=== PATIENT | male | born 1995 | race African-American/Black ===

== ENCOUNTER 2024-06-08 16:35 | Inpatient (IN) ==
--- NOTE | 2024-06-08 17:37 | Emergency Department Note ---
Impression & Plan Seizure, Acute neck pain, Acute back pain ED Provider Note NAME: YOLETTE [id number] EMMANUEL AGE: 29 SEX: Male INFORMANT: Patient, staff ED PROVIDER(S): Harley Singh MD CHIEF COMPLAINT: Seizure PLAN: Disposition: Admitted Outpatient prescription management: none Referral: None MEDICAL DECISION MAKING: Patient presented because of seizure issues. He was awake and answering questions. He was placed in a cervical collar. Patient had an elevated hemoglobin but no leukocytosis on CBC. Chemistry panel was unremarkable except for borderline magnesium. Patient underwent CT imaging of the head, cervical spine, thoracic spine and lumbar spine given his complaints of pain in this region. Patient was given Tylenol and hydrated. Patient had unremarkable findings in the spine imaging. His cervical collar was cleared. Patient's head CT showed possible hypodensity in the rodriguez radiata per radiology and repeat imaging was recommended. I did consult with neurology, Dr. Short at [facility] and discussed the case. Reviewed the diagnostics and presentation. She did recommend loading the patient with 2.5 g of Keppra and increasing his daily dose to 1000 mg twice daily. She felt repeat imaging in 12 hours was reasonable. MRI or CT scan depending upon what the patient can go through was recommended. 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 Patient notes not having an MRI ever before. The IV Keppra was ordered. The patient initially was placed on nasal cannula oxygen due to some borderline low sats. He had an unremarkable chest x-ray. Patient was taken off the oxygen and did well for short period time but then had borderline low sats again. There is no reports of aspiration bilious this is a possibility. Patient will need to be closely monitored. In light of the need for observation and repeat imaging further management in the hospital was deemed appropriate. Consultation was made with Dr. Damion Manning, [facility] hospitalist service. Case discussed and diagnostics were reviewed. Did review the neurology consult and recommendations. Patient was evaluated in the ER admitted for further management. Care/management discussed with: On-call neurology, hospitalist, group program manager Level of care consideration(s): After review of the information above and other included data, I feel the patient requires escalation of care to admission. Triage Nursing notes: reviewed and agree them. 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 Diagnostics, independently interpreted by me: ECG: Twelve-lead ECG reveals a sinus rhythm with first-degree AV block and right bundle branch block with inferolateral T wave inversions. When compared to 11 February 2024 morphology is similar. Cardiac Monitoring: Cardiac monitoring ordered by me: The patient was placed on continuous cardiac monitoring and observed. It revealed a normal sinus rhythm at 61 beats per minute without ectopy or evidence of dysrhythmia. Medical decision rules: none Imaging studies: Head CT: A noncontrast CT scan of the head was performed and was negative for tumor, fracture, intracranial hemorrhage. I refer you to the EMR for further details.. Chest x-ray. Findings: A chest x-ray was performed and revealed no pneumothorax, effusion, infiltrate, pulmonary edema, free air under the diaphragm, or wide mediastinum. Impression: No acute disease. HPI: 29 year old Male arrives for evaluation of seizure. Patient has a history of seizure disorder and does take Keppra. He states that he had a seizure last night and was under medical observation at the [facility]. Today he reportedly had 2 events. One that was between 1 to 4 minutes and another that was 1 to 2 minutes. The patient had received a milligram of Ativan IV. He was also found to be mildly hypoglycemic and was given D10. Patient reportedly had a postictal period. Currently he is awake and answering questions. He is tired however but denies missing any medication doses. He states he has mild pain in his head, moderate in his neck, upper back and lower back. Denies any extremity injury. Cervical collar was placed upon arrival to the ED. Pt denies visual changes, chest pain, breathing difficulties, nausea, vomiting, abdominal pain, extremity pain, numbness, weakness, open wounds, active bleeding, or other complaints.. PAST MEDICAL HISTORY: See Below, seizure disorder, hypoplastic left heart syndrome PAST SURGICAL HISTORY: See Below, SOCIAL HISTORY: See Below, incarcerated HOME MEDICATIONS: See Below ALLERGIES: See Below VITALS: See Below PHYSICAL EXAMINATION: GENERAL: Awake, tired but nontoxic-appearing, in no distress HENT: Normocephalic, atraumatic. Oropharynx unremarkable. EYES: Normal conjunctiva. Sclera non-icteric. PERRLA. EOMI. NECK: Inspection normal. Mild posterior midline tenderness. Cervical collar in place. No masses. RESPIRATORY: Clear to auscultation. No wheezes. No rales. Normal respiratory effort. CARDIAC: Normal rate. Normal rhythm. No murmurs. No rubs. Extremities warm and well perfused. Pulses equal. No JVD. GI: Soft, non-distended. No tenderness to palpation. No rebound or guarding. No masses. RECTAL: Deferred. MUSCULOSKELETAL: Atraumatic. Chest examination reveals no tenderness. The back is symmetrical on inspection without obvious abnormality. There is no CVA tenderness to palpation. No joint edema. LOWER EXTREMITIES: Calves are equal size bilaterally and non-tender. No edema. No discoloration. NEURO: Normal sensorium. No sensory or motor deficits noted. SKIN: No rash or jaundice noted. PROCEDURES: none CRITICAL CARE: none OBSERVATION NOTE: none Past Med/Surg History Problem List (Updated 06/08/24 @ 17:37 by Harley Singh MD) Acute back pain (Acute) Acute neck pain (Acute) Seizure (Acute) Social History Smoking Status: Never smoker Preferred Language: Niuean Feels Safe at Home: Yes Allergies Allergies Allergy/AdvReac Type Severity Reaction Status Date / Time No Known Allergies Allergy Unverified 06/08/24 21:59 Home Meds Home Medications Medication Instructions Recorded Confirmed acetaminophen 500 mg PO PRN Pain 06/08/24 aspirin 81 mg PO DAILY 06/08/24 06/08/24 levetiracetam 750 mg PO BID seizures 06/08/24 06/08/24 lisinopril 10 mg PO DAILY 06/08/24 06/08/24 Results & Data (ED) Vital Signs Vital Signs - 24 hr 06/08/24 16:49 06/08/24 17:05 06/08/24 18:45 Temperature 36.7 C Temperature Source Oral Pulse Rate 75 72 Pulse Rate [Apical] 62 Respiratory Rate 18 16 Blood Pressure 117/77 Blood Pressure [Right Arm] 105/68 Blood Pressure Mean 90 Blood Pressure Mean [Right Arm] 80 Pulse Oximetry 94 92 Oxygen Delivery Method Nasal Cannula Nasal Cannula Oxygen Flow Rate 2 2 Sepsis Recent Fever Within 48 Hours No Sepsis New/Unexplained Change in Mental Status No Sepsis Action Taken by Nursing No Action Required Oxygen Flow Rate - Titration Pulse Oximetry Post Tiitration 06/08/24 20:44 06/08/24 20:45 06/08/24 21:45 Temperature Temperature Source Pulse Rate 62 Pulse Rate [Apical] 67 Respiratory Rate 18 Blood Pressure Blood Pressure [Right Arm] 108/72 Blood Pressure Mean Blood Pressure Mean [Right Arm] 84 Pulse Oximetry 93 88 L Oxygen Delivery Method Nasal Cannula Nasal Cannula Oxygen Flow Rate 2 0 Sepsis Recent Fever Within 48 Hours Sepsis New/Unexplained Change in Mental Status Sepsis Action Taken by Nursing Oxygen Flow Rate - Titration 2 Pulse Oximetry Post Tiitration 94 06/08/24 22:00 06/08/24 22:35 Temperature Temperature Source Pulse Rate Pulse Rate [Apical] 62 61 Respiratory Rate 18 16 Blood Pressure Blood Pressure [Right Arm] 111/78 Blood Pressure Mean Blood Pressure Mean [Right Arm] 89 Pulse Oximetry 93 93 Oxygen Delivery Method Nasal Cannula Nasal Cannula Oxygen Flow Rate 2 2 Sepsis Recent Fever Within 48 Hours Sepsis New/Unexplained Change in Mental Status Sepsis Action Taken by Nursing Oxygen Flow Rate - Titration Pulse Oximetry Post Tiitration Laboratory Data 06/08/24 16:57 06/08/24 19:08 Lab Results 06/08/24 06/08/24 06/08/24 Range/Units 16:57 19:03 19:08 WBC 2.33 L (4.8-10.8) K/ul RBC 6.44 H (4.70-6.10) M/uL Hgb 19.6 H (14.0-18.0) g/dl Hct 56.3 H (42.0-52.0) % MCV 87.4 (80.0-100.0) fL MCH 30.4 (25.0-34.0) pg MCHC 34.8 (32.0-36.0) g/dL RDW Std Deviation 41.7 (36.4-46.3) fL RDW Coeff of Yusra 13.7 (11.5-14.5) % Plt Count 131 (130-400) K/uL Immature Gran % (Auto) 0.0 % Neut % (Auto) 65.6 % Lymph % (Auto) 26.2 % [place] % (Auto) 6.9 % Eos % (Auto) 0.9 % Baso % (Auto) 0.4 % Neut # (Auto) 1.53 (1.40-6.50) K/uL Lymph # (Auto) 0.61 L (1.20-3.40) K/uL [place] # (Auto) 0.16 (0.11-0.59) K/uL Eos # (Auto) 0.02 (0.00-0.50) K/uL Baso # (Auto) 0.01 (0.00-0.20) K/uL Immature Gran # (Auto) 0.00 L (0.01-0.20) K/uL Sodium Cancelled 136 Potassium Cancelled 3.7 Chloride Cancelled 105 Carbon Dioxide Cancelled 24 Anion Gap Cancelled 7 BUN Cancelled 20 Creatinine Cancelled 0.86 Est Cr Clr Drug Dosing Cancelled 125.6 eGFR Cancelled 119.46 BUN/Creatinine Ratio Cancelled 23.3 H Glucose Cancelled 74 POC Glucose 77 (70-99) mg/dl Calcium Cancelled 9.9 Magnesium Cancelled 1.4 L Total Bilirubin Cancelled 1.1 H AST Cancelled 27 ALT Cancelled 24 Alkaline Phosphatase Cancelled 58 Total Protein Cancelled 7.5 Albumin Cancelled 4.3 Globulin Cancelled 3.2 Albumin/Globulin Ratio Cancelled 1.3 TSH Cancelled 2.584 Levetiracetam Cancelled Administered Medications Magnesium Sulfate/Dextrose (Magnesium Sulfate / D5w) 1 gm in 100 mls @ 50 mls/hr IV Q2H PHILLIP Stop: 06/09/24 01:14 Last Admin: 06/08/24 22:35 Dose: 50 mls/hr Documented By: PATSY Sodium Chloride (Nss) 1,000 mls @ 60 mls/hr IV .[id number] ONE Stop: 06/09/24 13:53 Last Admin: 06/08/24 21:53 Dose: 60 mls/hr Documented By: HEMAL Discontinued Medications Acetaminophen (Ofirmev) 1,000 mg in 100 mls @ 400 mls/hr IV NOW STA Stop: 06/08/24 17:45 Last Infusion: 06/08/24 18:59 Dose: Infused Documented By: Admin: 06/08/24 18:35 Dose: 400 mls/hr Documented By: NRB Sodium Chloride (Nss) 500 mls @ 999 mls/hr IV .[id number] ONE Stop: 06/08/24 21:16 Last Infusion: 06/08/24 21:52 Dose: Infused Documented By: Admin: 06/08/24 21:00 Dose: 999 mls/hr Documented By: HEMAL Sodium Chloride (Nss) 1,000 mls @ 125 mls/hr IV .Q8H PHILLIP Stop: 06/09/24 20:59 Last Admin: 06/08/24 21:53 Dose: Not Given Documented By: HEMAL Levetiracetam (Levetiracetam 500 Mg/5 Ml Vial) 2,500 mg IV NOW STA Stop: 06/08/24 20:46 Last Admin: 06/08/24 21:53 Dose: 2,500 mg Documented By: HEMAL Miscellaneous Information (Patient's Allergy Info Needs Entered) 1 each N/A NOW STA Stop: 06/08/24 21:23 Last Admin: 06/08/24 22:33 Dose: Not Given Documented By: HEMAL Imaging Data Radiologist's Impression: Cervical Spine CT 06/08/24 16:55 EXAM: CT Cervical Spine Without Intravenous Contrast INDICATION: Seizure. TECHNIQUE: Axial computed tomography images of the cervical spine without intravenous contrast. Sagittal and coronal reformatted images were created and reviewed. This CT exam was performed using one or more of the following dose reduction techniques: automated exposure control, adjustment of the mA and/or kV according to patient size, and/or use of iterative reconstruction technique. COMPARISON: No relevant prior studies available. FINDINGS: Limitations: None. Vertebrae: There is no fracture or subluxation. Discs/spinal canal/neural foramina: No significant disc space abnormality or stenosis. Soft tissues: No significant abnormality noted. Lung apices: No significant abnormality noted. IMPRESSION: No cervical fracture. ACT 112: Negative or not required by law. Electronically signed by Yelena Watkins 06-08-2024 6:[address] 06/08/24 16:55 EXAM: CT Head Without Intravenous Contrast INDICATION: Seizure. TECHNIQUE: Axial computed tomography images of the head/brain without intravenous contrast. Sagittal and/or coronal reformats are provided. Sagittal and coronal reformatted images were created and reviewed. This CT exam was performed using one or more of the following dose reduction techniques: automated exposure control, adjustment of the mA and/or kV according to patient size, and/or use of iterative reconstruction technique. COMPARISON: No relevant prior studies available. FINDINGS: Limitations: None. Brain and extra-axial spaces: Subtle asymmetric white matter hypodensity in the right rodriguez radiata series 2 image 16 is likely artifactual. No territorial infarct, hemorrhage or extra-axial fluid collection. Bones/joints: No acute changes. Soft tissues: No significant abnormality noted. Vasculature: No acute abnormality noted. Sinuses: No layering fluid in the visualized portions of the paranasal sinuses. Mastoid air cells: No mastoid effusion. Orbits: No significant abnormality noted. IMPRESSION: 1. No definite acute abnormality. 2. Slight hypodensity in the right rodriguez radiata is thought to reflect artifact related to slight head rotation. If additional imaging is clinically warranted, MRI is modality of choice. ACT 112: Negative or not required by law. Electronically signed by Yelena Watkins 06-08-2024 6:[address] 06/08/24 17:09 EXAM: CT Lumbar Spine Without Intravenous Contrast INDICATION: Seizure. TECHNIQUE: Axial computed tomography images of the lumbar spine without intravenous contrast. Sagittal and coronal reformatted images were created and reviewed. This CT exam was performed using one or more of the following dose reduction techniques: automated exposure control, adjustment of the mA and/or kV according to patient size, and/or use of iterative reconstruction technique. COMPARISON: No relevant prior studies available. FINDINGS: Limitations: None. Vertebrae: Vertebral body heights maintained. No fracture or significant subluxation. Sacrum/coccyx: No significant abnormality noted. No acute change noted. Discs/spinal canal/neural foramina: No significant disc space abnormality or stenosis. Soft tissues: No significant abnormality noted. IMPRESSION: Normal lumbar spine CT. ACT 112: Negative or not required by law. Electronically signed by Yelena Watkins 06-08-2024 6:[address] 06/08/24 17:09 EXAM: CT Thoracic Spine Without Intravenous Contrast INDICATION: Seizure. TECHNIQUE: Axial computed tomography images of the thoracic spine without intravenous contrast. Sagittal and coronal reformatted images were created and reviewed. This CT exam was performed using one or more of the following dose reduction techniques: automated exposure control, adjustment of the mA and/or kV according to patient size, and/or use of iterative reconstruction technique. COMPARISON: No relevant prior studies available. FINDINGS: Limitations: None. Vertebrae: Very mild S-shaped curvature of the thoracic spine. There are 12 rib-bearing thoracic vertebra normally developed and aligned. No fracture or subluxation. Discs/spinal canal/neural foramina: No significant disc space abnormality or stenosis. Other bones/joints: No abnormality noted. Soft tissues: No significant abnormality noted. Heart: No abnormality noted. Mediastinum: No significant abnormality noted. Liver: No significant abnormality noted. IMPRESSION: Very minimal thoracic scoliosis. No fracture. ACT 112: Negative or not required by law. Electronically signed by Yelena Watkins 06-08-2024 6:19 PM Chest X-Ray 06/08/24 17:31 EXAM: Radiograph of the Chest 1 View INDICATION: Seizure. TECHNIQUE: Frontal view of the chest. COMPARISON: No relevant prior studies available. FINDINGS: Lungs and pleural spaces: No consolidation or pulmonary edema. No pleural effusion or pneumothorax. Heart: Normal shape and configuration. Embolization coils project along the left mediastinum. There is a metallic device possibly a atrial septal closure device projecting over the right heart. Mediastinum: Normal contour. Bones/joints: No acute osseous abnormality. Sternal wires noted. Soft tissues: No abnormality noted. No radiopaque foreign body noted. Upper abdomen: No abnormality noted. IMPRESSION: No acute cardiopulmonary disease. ACT 112: Negative or not required by law. Electronically signed by Yelena Watkins 06-08-2024 6:08 PM Discharge Plan Visit Data Chief Complaint: Seizure Stated Complaint: SEIZURE ED Provider: Harley Singh Discharge Problem: Seizure, Acute neck pain, Acute back pain Forms Stand Alone Forms: [employer] Prescriptions Prescriptions: No Action acetaminophen 500 mg 500 mg PO MDD 3x PRN (Reason: Pain) aspirin 81 mg 81 mg PO DAILY levetiracetam 750 mg 750 mg PO BID lisinopril 10 mg 10 mg PO DAILY Referrals Referrals: Samy GARCIA [Primary Care Provider] -
[2024-06-08 18:06] LABS: Basophils # (auto) 0.01 K/uL (0.00-0.20); Basophils % (auto) 0.4 %; Eosinophils # (auto) 0.02 K/uL (0.00-0.50); Eosinophils % (auto) 0.9 %; Hematocrit (blood only) 56.3 % (42.0-52.0); Hemoglobin 19.6 g/dl (14.0-18.0); Lymphocytes # (auto) 0.61 K/uL (1.20-3.40); Lymphocytes % (auto) 26.2 %; Mean Corpuscular Hemoglobin 30.4 pg (25.0-34.0); Mean Corpuscular Hgb Conc 34.8 g/dL (32.0-36.0); Mean Corpuscular Volume 87.4 fL (80.0-100.0); Monocytes # (auto) 0.16 K/uL (0.11-0.59); Monocytes % (auto) 6.9 %; Neutrophils # (auto) 1.53 K/uL (1.40-6.50); Neutrophils % (auto) 65.6 %; Platelet Count 131 K/uL (130-400); RDW Coefficient of Variation 13.7 % (11.5-14.5); RDW Standard Deviation 41.7 fL (36.4-46.3); Red Blood Count 6.44 M/uL (4.70-6.10); White Blood Count 2.33 K/ul (4.8-10.8)
--- NOTE | 2024-06-08 18:08 | XRay Report ---
EXAM: Radiograph of the Chest 1 View INDICATION: Seizure. TECHNIQUE: Frontal view of the chest. COMPARISON: No relevant prior studies available. FINDINGS: Lungs and pleural spaces: No consolidation or pulmonary edema. No pleural effusion or pneumothorax. Heart: Normal shape and configuration. Embolization coils project along the left mediastinum. There is a metallic device possibly a atrial septal closure device projecting over the right heart. Mediastinum: Normal contour. Bones/joints: No acute osseous abnormality. Sternal wires noted. Soft tissues: No abnormality noted. No radiopaque foreign body noted. Upper abdomen: No abnormality noted. IMPRESSION: No acute cardiopulmonary disease. ACT 112: Negative or not required by law. Electronically signed by Yeelna Watkins 06-08-2024 6:08 PM
--- NOTE | 2024-06-08 18:17 | CT Scan Report ---
EXAM: CT Head Without Intravenous Contrast INDICATION: Seizure. TECHNIQUE: Axial computed tomography images of the head/brain without intravenous contrast. Sagittal and/or coronal reformats are provided. Sagittal and coronal reformatted images were created and reviewed. This CT exam was performed using one or more of the following dose reduction techniques: automated exposure control, adjustment of the mA and/or kV according to patient size, and/or use of iterative reconstruction technique. COMPARISON: No relevant prior studies available. FINDINGS: Limitations: None. Brain and extra-axial spaces: Subtle asymmetric white matter hypodensity in the right rodriguez radiata series 2 image 16 is likely artifactual. No territorial infarct, hemorrhage or extra-axial fluid collection. Bones/joints: No acute changes. Soft tissues: No significant abnormality noted. Vasculature: No acute abnormality noted. Sinuses: No layering fluid in the visualized portions of the paranasal sinuses. Mastoid air cells: No mastoid effusion. Orbits: No significant abnormality noted. IMPRESSION: 1. No definite acute abnormality. 2. Slight hypodensity in the right rodriguez radiata is thought to reflect artifact related to slight head rotation. If additional imaging is clinically warranted, MRI is modality of choice. ACT 112: Negative or not required by law. Electronically signed by Yelena Watkins 06-08-2024 6:17 PM
--- NOTE | 2024-06-08 18:20 | CT Scan Report ---
EXAM: CT Thoracic Spine Without Intravenous Contrast INDICATION: Seizure. TECHNIQUE: Axial computed tomography images of the thoracic spine without intravenous contrast. Sagittal and coronal reformatted images were created and reviewed. This CT exam was performed using one or more of the following dose reduction techniques: automated exposure control, adjustment of the mA and/or kV according to patient size, and/or use of iterative reconstruction technique. COMPARISON: No relevant prior studies available. FINDINGS: Limitations: None. Vertebrae: Very mild S-shaped curvature of the thoracic spine. There are 12 rib-bearing thoracic vertebra normally developed and aligned. No fracture or subluxation. Discs/spinal canal/neural foramina: No significant disc space abnormality or stenosis. Other bones/joints: No abnormality noted. Soft tissues: No significant abnormality noted. Heart: No abnormality noted. Mediastinum: No significant abnormality noted. Liver: No significant abnormality noted. IMPRESSION: Very minimal thoracic scoliosis. No fracture. ACT 112: Negative or not required by law. Electronically signed by Yelena Watkins 06-08-2024 6:19 PM
--- NOTE | 2024-06-08 18:23 | CT Scan Report ---
EXAM: CT Cervical Spine Without Intravenous Contrast INDICATION: Seizure. TECHNIQUE: Axial computed tomography images of the cervical spine without intravenous contrast. Sagittal and coronal reformatted images were created and reviewed. This CT exam was performed using one or more of the following dose reduction techniques: automated exposure control, adjustment of the mA and/or kV according to patient size, and/or use of iterative reconstruction technique. COMPARISON: No relevant prior studies available. FINDINGS: Limitations: None. Vertebrae: There is no fracture or subluxation. Discs/spinal canal/neural foramina: No significant disc space abnormality or stenosis. Soft tissues: No significant abnormality noted. Lung apices: No significant abnormality noted. IMPRESSION: No cervical fracture. ACT 112: Negative or not required by law. Electronically signed by Yelena Watkins 06-08-2024 6:22 PM
--- NOTE | 2024-06-08 18:24 | CT Scan Report ---
EXAM: CT Lumbar Spine Without Intravenous Contrast INDICATION: Seizure. TECHNIQUE: Axial computed tomography images of the lumbar spine without intravenous contrast. Sagittal and coronal reformatted images were created and reviewed. This CT exam was performed using one or more of the following dose reduction techniques: automated exposure control, adjustment of the mA and/or kV according to patient size, and/or use of iterative reconstruction technique. COMPARISON: No relevant prior studies available. FINDINGS: Limitations: None. Vertebrae: Vertebral body heights maintained. No fracture or significant subluxation. Sacrum/coccyx: No significant abnormality noted. No acute change noted. Discs/spinal canal/neural foramina: No significant disc space abnormality or stenosis. Soft tissues: No significant abnormality noted. IMPRESSION: Normal lumbar spine CT. ACT 112: Negative or not required by law. Electronically signed by Yelena Watkins 06-08-2024 6:24 PM
[2024-06-08] MEDS: ACETAMINOPHEN 1,000 MG/100 ML VIAL IV STA (18:35)
[2024-06-08 19:53] LABS: Albumin Globulin Ratio 1.3 (0.9-2); Albumin Level 4.3 gm/dl (3.4-5.0); BUN Creatinine Ratio 23.3 (10-20); Bilirubin,Total 1.1 mg/dl (0.2-1.0); Calcium 9.9 mg/dl (8.6-10.3); Creatinine Clr Calc Pharmacy 125.6 ml/min; Globulin 3.2 gm/dl (2.5-4.0); Magnesium 1.4 mg/dl (1.7-2.4); Potassium 3.7 mmol/L (3.5-5.1); Total Protein 7.5 gm/dl (6.0-8.3)
[2024-06-08 20:07] LABS: Thyroid Stimulating Hormone 2.584 uIu/ml (0.300-4.500)
[2024-06-08] MEDS: SODIUM CHLORIDE 0.9% 500 ML IV ONE (21:00)
[2024-06-08] MEDS: SODIUM CHLORIDE 0.9% 1,000 ML IV SCH (21:53)
[2024-06-08] MEDS: levETIRAcetam 500 MG/5 ML VIAL IV STA (21:53)
[2024-06-08] MEDS: SODIUM CHLORIDE 0.9% 1,000 ML IV ONE (21:53)
[2024-06-08] MEDS: Patient's ALLERGY Info needs ENTERED STA (22:33)
[2024-06-08] MEDS: MAGNESIUM SULFATE / D5W 1 GM/100 ML BAG IV SCH (22:35)
--- NOTE | 2024-06-08 23:40 | History & Physical Report ---
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 [facility] [place] who recommends brain MRI given abnormal CT head and Keppra load followed by increasing daily Keppra from 750 mg twice daily to to 1 g twice daily.) Replace electrolytes Follow CBC, peripheral blood smear if with persistent abnormality DVT prophylaxis. SCDs re: recent head trauma Full code Text document was generated using [employer] voice recognition software. It may contain grammatical or spelling errors. Kindly contact undersigned for clarification of any documentation item in question. History of Present Illness Chief Complaint: Recurrent seizures as per records Primary Care Provider: JOSE Pablo History obtained from patient and records. 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 Patient has had a seizure disorder since age 10. Has not had a seizure for quite some time. 1 week history of intermittent achy left-sided headache symptoms. Patient did not mention symptoms to medical providers at facility. 2 witnessed seizures at [facility] facility lasting 1 to 4 minutes per episode today. No missed medications. Poor appetite yesterday as per patient. Denies abdominal pain. Patient noted to be hypoglycemic BG 50s. Subsequent head trauma from fall. Dextrose water given by EMS. Patient brought to ER for evaluation. 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 Allergies Allergy/AdvReac Type Severity Reaction Status Date / Time No Known Allergies Allergy Unverified 06/08/24 21:59 Home Medications Medication Instructions Recorded Confirmed Type acetaminophen 500 mg PO PRN Pain 06/08/24 History aspirin 81 mg PO DAILY 06/08/24 06/08/24 History levetiracetam 750 mg PO BID seizures 06/08/24 06/08/24 History lisinopril 10 mg PO DAILY 06/08/24 06/08/24 History Past Med/Surg History Problem List (Updated 06/09/24 @ 01:43 by Background Roldan) Acute back pain (Acute) Acute neck pain (Acute) Seizure (Acute) Social History Smoking Status: Never smoker Hx Alcohol Use: No Hx Substance Use: No Preferred Language: Lithuanian Communication Ability: Effective [employer]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 Beliefs That Will Affect Care: None Current Living Situation: Other Current Living Situation Comment: [facility] Other Information That Helps Us Care for You: No Feels Safe at Home: Yes Review of Systems Review of Systems: As per HPI, all other systems reviewed and negative Physical Exam Physical Exam: GENERAL: Apathetic, no respiratory distress SKIN: Normal color, warm HEENT: Caroleen palpebral conjunctivae, no ptosis, dry buccal mucosa NECK : Supple, no tenderness CHEST : CTA, no tenderness HEART : RRR, systolic murmur ABDOMEN: Some distention, nontender EXTREMITIES : No LE swelling/tenderness, no other conspicuous deformities noted NEUROLOGIC : Coherent, no facial asymmetry, no other gross focality Results & Data Results & Data Vital Signs (Past 12 Hours) Vital Signs Temp Pulse Pulse Resp BP BP Pulse Ox 06/08/24 22:35 61 16 111/78 93 06/08/24 22:00 62 18 93 06/08/24 21:45 88 L 06/08/24 20:45 62 06/08/24 20:44 67 18 108/72 93 06/08/24 18:45 62 16 105/68 92 06/08/24 17:05 36.7 C 72 18 117/77 94 06/08/24 16:49 75 O2 Del Method O2 Flow Rate 06/08/24 22:35 Nasal Cannula 2 06/08/24 22:00 Nasal Cannula 2 06/08/24 21:45 Nasal Cannula 0 06/08/24 20:45 06/08/24 20:44 Nasal Cannula 2 06/08/24 18:45 Nasal Cannula 2 06/08/24 17:05 Nasal Cannula 2 06/08/24 16:49 Laboratory Results Laboratory Results WBC 2.33 K/ul (4.8-10.8) L 06/08/24 16:57 RBC 6.44 M/uL (4.70-6.10) H 06/08/24 16:57 Hgb 19.6 g/dl (14.0-18.0) H 06/08/24 16:57 Hct 56.3 % (42.0-52.0) H 06/08/24 16:57 MCV 87.4 fL (80.0-100.0) 06/08/24 16:57 MCH 30.4 pg (25.0-34.0) 06/08/24 16:57 MCHC 34.8 g/dL (32.0-36.0) 06/08/24 16:57 RDW Std Deviation 41.7 fL (36.4-46.3) 06/08/24 16:57 RDW Coeff of Yusra 13.7 % (11.5-14.5) 06/08/24 16:57 Plt Count 131 K/uL (130-400) 06/08/24 16:57 Immature Gran % (Auto) 0.0 % 06/08/24 16:57 Neut % (Auto) 65.6 % 06/08/24 16:57 Lymph % (Auto) 26.2 % 06/08/24 16:57 Ventura % (Auto) 6.9 % 06/08/24 16:57 Eos % (Auto) 0.9 % 06/08/24 16:57 Baso % (Auto) 0.4 % 06/08/24 16:57 Neut # (Auto) 1.53 K/uL (1.40-6.50) 06/08/24 16:57 Lymph # (Auto) 0.61 K/uL (1.20-3.40) L 06/08/24 16:57 [place]ura # (Auto) 0.16 K/uL (0.11-0.59) 06/08/24 16:57 Eos # (Auto) 0.02 K/uL (0.00-0.50) 06/08/24 16:57 Baso # (Auto) 0.01 K/uL (0.00-0.20) 06/08/24 16:57 Immature Gran # (Auto) 0.00 K/uL (0.01-0.20) L 06/08/24 16:57 Sodium 136 mmol/L (136-145) 06/08/24 19:08 Potassium 3.7 mmol/L (3.5-5.1) 06/08/24 19:08 Chloride 105 mmol/L (98-107) 06/08/24 19:08 Carbon Dioxide 24 mmol/L (21-32) 06/08/24 19:08 Anion Gap 7 (3-11) 06/08/24 19:08 BUN 20 mg/dl (6-23) 06/08/24 19:08 Creatinine 0.86 mg/dl (0.6-1.4) 06/08/24 19:08 Est Cr Clr Drug Dosing 125.6 ml/min 06/08/24 19:08 eGFR 119.46 06/08/24 19:08 BUN/Creatinine Ratio 23.3 (10-20) H 06/08/24 19:08 Glucose 74 mg/dl (70-99(Fasting)) 06/08/24 19:08 POC Glucose 77 mg/dl (70-99) 06/08/24 19:03 Calcium 9.9 mg/dl (8.6-10.3) 06/08/24 19:08 Magnesium 1.4 mg/dl (1.7-2.4) L 06/08/24 19:08 Total Bilirubin 1.1 mg/dl (0.2-1.0) H 06/08/24 19:08 AST 27 U/L (13-39) 06/08/24 19:08 ALT 24 U/L (7-52) 06/08/24 19:08 Alkaline Phosphatase 58 U/L (34-104) 06/08/24 19:08 Total Protein 7.5 gm/dl (6.0-8.3) 06/08/24 19:08 Albumin 4.3 gm/dl (3.4-5.0) 06/08/24 19:08 Globulin 3.2 gm/dl (2.5-4.0) 06/08/24 19:08 Albumin/Globulin Ratio 1.3 (0.9-2) 06/08/24 19:08 TSH 2.584 uIu/ml (0.300-4.500) 06/08/24 19:08 Levetiracetam Cancelled 06/08/24 16:[address] 06/08/24 16:55 EXAM: CT Cervical Spine Without Intravenous Contrast INDICATION: Seizure. TECHNIQUE: Axial computed tomography images of the cervical spine without intravenous contrast. Sagittal and coronal reformatted images were created and reviewed. This CT exam was performed using one or more of the following dose reduction techniques: automated exposure control, adjustment of the mA and/or kV according to patient size, and/or use of iterative reconstruction technique. COMPARISON: No relevant prior studies available. FINDINGS: Limitations: None. Vertebrae: There is no fracture or subluxation. Discs/spinal canal/neural foramina: No significant disc space abnormality or stenosis. Soft tissues: No significant abnormality noted. Lung apices: No significant abnormality noted. IMPRESSION: No cervical fracture. ACT 112: Negative or not required by law. Electronically signed by Yelena Watkins 06-08-2024 6:[address] 06/08/24 16:55 EXAM: CT Head Without Intravenous Contrast INDICATION: Seizure. TECHNIQUE: Axial computed tomography images of the head/brain without intravenous contrast. Sagittal and/or coronal reformats are provided. Sagittal and coronal reformatted images were created and reviewed. This CT exam was performed using one or more of the following dose reduction techniques: automated exposure control, adjustment of the mA and/or kV according to patient size, and/or use of iterative reconstruction technique. COMPARISON: No relevant prior studies available. FINDINGS: Limitations: None. Brain and extra-axial spaces: Subtle asymmetric white matter hypodensity in the right rodriguez radiata series 2 image 16 is likely artifactual. No territorial infarct, hemorrhage or extra-axial fluid collection. Bones/joints: No acute changes. Soft tissues: No significant abnormality noted. Vasculature: No acute abnormality noted. Sinuses: No layering fluid in the visualized portions of the paranasal sinuses. Mastoid air cells: No mastoid effusion. Orbits: No significant abnormality noted. IMPRESSION: 1. No definite acute abnormality. 2. Slight hypodensity in the right rodriguez radiata is thought to reflect artifact related to slight head rotation. If additional imaging is clinically warranted, MRI is modality of choice. ACT 112: Negative or not required by law. Electronically signed by Yelena Watkins 06-08-2024 6:[address] 06/08/24 17:09 EXAM: CT Lumbar Spine Without Intravenous Contrast INDICATION: Seizure. TECHNIQUE: Axial computed tomography images of the lumbar spine without intravenous contrast. Sagittal and coronal reformatted images were created and reviewed. This CT exam was performed using one or more of the following dose reduction techniques: automated exposure control, adjustment of the mA and/or kV according to patient size, and/or use of iterative reconstruction technique. COMPARISON: No relevant prior studies available. FINDINGS: Limitations: None. Vertebrae: Vertebral body heights maintained. No fracture or significant subluxation. Sacrum/coccyx: No significant abnormality noted. No acute change noted. Discs/spinal canal/neural foramina: No significant disc space abnormality or stenosis. Soft tissues: No significant abnormality noted. IMPRESSION: Normal lumbar spine CT. ACT 112: Negative or not required by law. Electronically signed by Yelena Watkins 06-08-2024 6:[address] 06/08/24 17:09 EXAM: CT Thoracic Spine Without Intravenous Contrast INDICATION: Seizure. TECHNIQUE: Axial computed tomography images of the thoracic spine without intravenous contrast. Sagittal and coronal reformatted images were created and reviewed. This CT exam was performed using one or more of the following dose reduction techniques: automated exposure control, adjustment of the mA and/or kV according to patient size, and/or use of iterative reconstruction technique. COMPARISON: No relevant prior studies available. FINDINGS: Limitations: None. Vertebrae: Very mild S-shaped curvature of the thoracic spine. There are 12 rib-bearing thoracic vertebra normally developed and aligned. No fracture or subluxation. Discs/spinal canal/neural foramina: No significant disc space abnormality or stenosis. Other bones/joints: No abnormality noted. Soft tissues: No significant abnormality noted. Heart: No abnormality noted. Mediastinum: No significant abnormality noted. Liver: No significant abnormality noted. IMPRESSION: Very minimal thoracic scoliosis. No fracture. ACT 112: Negative or not required by law. Electronically signed by Yelena Watkins 06-08-2024 6:19 PM Chest X-Ray 06/08/24 17:31 EXAM: Radiograph of the Chest 1 View INDICATION: Seizure. TECHNIQUE: Frontal view of the chest. COMPARISON: No relevant prior studies available. FINDINGS: Lungs and pleural spaces: No consolidation or pulmonary edema. No pleural effusion or pneumothorax. Heart: Normal shape and configuration. Embolization coils project along the left mediastinum. There is a metallic device possibly a atrial septal closure device projecting over the right heart. Mediastinum: Normal contour. Bones/joints: No acute osseous abnormality. Sternal wires noted. Soft tissues: No abnormality noted. No radiopaque foreign body noted. Upper abdomen: No abnormality noted. IMPRESSION: No acute cardiopulmonary disease. ACT 112: Negative or not required by law. Electronically signed by Yelena Watkins 06-08-2024 6:08 PM Diagnostic Findings EKG as per my interpretation :Rate 70, NSR, normal axis, RBBB, RVH ST depression inferior and anterolateral leads
[2024-06-08] MEDS ORDERED: LORazepam 2 MG/1 ML VIAL IV PRN (23:43)
[2024-06-09] MEDS ORDERED: LORazepam 0.5 MG TAB PO PRN (00:06)
[2024-06-09] MEDS ORDERED: ONDANSETRON INJ 2 MG/ML 2 ML VIAL IV PRN (00:06)
[2024-06-09] MEDS: KETOROLAC TROMETHAMINE 15 MG/ML VIAL IV ONE (02:06)
[2024-06-09 02:57] LABS: Adenovirus PCR Not Detected (NotDetected); Bordetella parapertussis PCR Not Detected (NotDetected); Bordetella pertussis PCR Not Detected (NotDetected); Chlamydia pneumoniae PCR Not Detected (NotDetected); Coronavirus 229E PCR Not Detected (NotDetected); Coronavirus CoV-2 (COVID19)PCR Not Detected (NotDetected); Coronavirus HKU1 PCR Not Detected (NotDetected); Coronavirus NL63 PCR Not Detected (NotDetected); Coronavirus OC43PCR Not Detected (NotDetected); Human Metapneumovirus PCR Not Detected (NotDetected); Influenza A PCR Not Detected (NotDetected); Influenza B PCR Not Detected (NotDetected); Mycoplasma pneumoniae PCR Not Detected (NotDetected); Parainfluenza Virus 1 PCR Not Detected (NotDetected); Parainfluenza Virus 2 PCR Not Detected (NotDetected); Parainfluenza Virus 3 PCR Not Detected (NotDetected); Parainfluenza Virus 4 PCR Not Detected (NotDetected); Respiratory Syncytial VirusPCR Not Detected (NotDetected); Rhinovirus/Enterovirus PCR Not Detected (NotDetected)
[2024-06-09 08:40] LABS: BUN Creatinine Ratio 19.8 (10-20); Calcium 9.4 mg/dl (8.6-10.3); Creatinine Clr Calc Pharmacy 125.6 ml/min; Hemoglobin 19.8 g/dl (14.0-18.0); Magnesium 1.7 mg/dl (1.7-2.4); Mean Corpuscular Hemoglobin 30.3 pg (25.0-34.0); Mean Corpuscular Hgb Conc 34.7 g/dL (32.0-36.0); Mean Corpuscular Volume 87.2 fL (80.0-100.0); Platelet Count 123 K/uL (130-400); Potassium 4.1 mmol/L (3.5-5.1); RDW Coefficient of Variation 13.4 % (11.5-14.5); RDW Standard Deviation 42.1 fL (36.4-46.3); Red Blood Count 6.54 M/uL (4.70-6.10); White Blood Count 2.71 K/ul (4.8-10.8)
[2024-06-09 08:41] LABS: Basophils # (auto) 0.01 K/uL (0.00-0.20); Basophils % (auto) 0.4 %; Eosinophils # (auto) 0.06 K/uL (0.00-0.50); Eosinophils % (auto) 2.2 %; Lymphocytes # (auto) 0.96 K/uL (1.20-3.40); Lymphocytes % (auto) 35.4 %; Mean Platelet Volume 11.7 fL (9.4-12.4); Monocytes # (auto) 0.29 K/uL (0.11-0.59); Monocytes % (auto) 10.7 %; Neutrophils # (auto) 1.39 K/uL (1.40-6.50); Neutrophils % (auto) 51.3 %
[2024-06-09] MEDS: ASPIRIN 81 MG ECTAB PO SCH (10:12)
[2024-06-09] MEDS: levETIRAcetam 500 MG TAB PO SCH (10:12)
[2024-06-09] MEDS: lisinopril 10 MG TAB PO SCH (10:12)
--- NOTE | 2024-06-09 12:49 | Electrocardiogram Report ---
Test Reason : Blood Pressure : */* mmHG Vent. Rate : 72 BPM Atrial Rate : 72 BPM P-R Int : 212 ms QRS Dur : 128 ms QT Int : 392 ms P-R-T Axes : 85 123 -84 degrees QTcB Int : 429 ms Sinus rhythm with 1st degree A-V block Possible Left atrial enlargement Right bundle branch block , plus right ventricular hypertrophy Marked T wave abnormality consider anterolateral ischemia Abnormal ECG No previous ECGs available Confirmed by Kailash Velazquez ([id number]) on 06/09/2024 12:48:55 PM Referred By: Samy GARCIA Confirmed By: Kailash Velazquez
[2024-06-09 16:39] LABS: Appearance Urine Clear (Clear); Bilirubin Urine Negative (Negative); Blood Urine Negative (Negative); Color Urine Yellow; Glucose Urine UA Negative (Negative); Ketones Urine Negative (Negative); Leukocyte Esterase Urine Negative (Negative); Nitrite Urine Negative (Negative); Protein Urine Negative (Negative); Specific Gravity Urine 1.018 (1.000-1.030); Urobilinogen Urine Positive (Negative)
--- NOTE | 2024-06-09 17:02 | Hospitalist Progress Note ---
Date of Service June 09, 2024 Assessment & Plan (1) Seizure: Plan: Breakthrough seizures History of childhood seizure disorder Provoked by hypoglycemia, rule out viral illness Seizure precautions, Ativan as needed active seizures Neurology consult Re: Breakthrough seizures Right hypodensity on CT head ED provider already in touch [place]. Short [place] [facility] [place] who recommends brain MRI given abnormal CT head and Keppra load followed by increasing daily Keppra from 750 mg twice daily to to 1 g twice daily. Replace electrolytes Minimal headache but no other symptoms and no postictal state MRI is not compatible due to multiple procedures in the past- likely to have CT head with contrast Will consult Neurology will get EEG Valvular heart disease (mild TR/AR, 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 SCDs re: recent head trauma Full code Text document was generated using [employer] voice recognition software. It may contain grammatical or spelling errors. Kindly contact undersigned for clarification of any documentation item in question. Admission and Anticipated Discharge Date Admission Date: June 08, 2024 Subjective 06/09/2024 The patient was seen and examined in the emergency room He was admitted with breakthrough seizures and now complains of some headache Denies any other significant symptoms Review of Systems Review of Systems: All systems reviewed and are unremarkable except as noted below Physical Exam Physical Exam: Lying in bed without any apparent distress Constitutional: + ill appearing and + thin Eyes: PERRL, conjunctivae normal, anicteric sclerae ENMT: external ear and nose normal, oropharynx normal Neck: trachea midline, no thyromegaly Respiratory: no respiratory distress Auscultation: + diminished lung sounds; no crackles Cardiovascular: Rate/Rhythm: regular rate and regular rhythm; not tachycardic Gastrointestinal (Abdomen): Inspection/Auscultation: normal bowel sounds; abdomen not distended Percussion/Palpation: abdomen soft; abdomen nontender Musculoskeletal: No acute arthritis involving any of the joint Neurologic: Alert, awake and oriented x 3. Generally weak Lymphatic: no cervical or axillary lymphadenopathy Results & Data Results & Data Vital Signs (Past 12 Hours) Vital Signs Temp Pulse Pulse Pulse Resp BP BP 06/09/24 15:49 69 06/09/24 15:31 06/09/24 15:21 37.1 C 65 12 145/82 H 06/09/24 14:48 20 115/82 06/09/24 14:42 62 20 115/82 06/09/24 07:58 63 06/09/24 07:30 06/09/24 07:30 36.8 C 61 20 114/76 06/09/24 06:00 49 L 16 104/63 06/09/24 05:01 50 L 16 101/67 Pulse Ox O2 Del Method O2 Flow Rate 06/09/24 15:49 06/09/24 15:31 Nasal Cannula 5 06/09/24 15:21 91 Nasal Cannula 5 06/09/24 14:48 93 Room Air 06/09/24 14:42 93 Room Air 06/09/24 07:58 06/09/24 07:30 93 Room Air 06/09/24 07:30 98 Room Air 06/09/24 06:00 93 Nasal Cannula 2 06/09/24 05:01 97 Nasal Cannula 2 Laboratory Results Short CBC 06/08/24 06/09/24 Range/Units 16:57 07:26 WBC 2.33 L 2.71 L (4.8-10.8) K/ul Hgb 19.6 H 19.8 H (14.0-18.0) g/dl Hct 56.3 H 57.0 H (42.0-52.0) % Plt Count 131 123 L (130-400) K/uL BMP 06/08/24 06/08/24 06/09/24 16:57 19:08 07:26 Sodium Cancelled 136 136 Potassium Cancelled 3.7 4.1 Chloride Cancelled 105 106 Carbon Dioxide Cancelled 24 24 BUN Cancelled 20 17 Creatinine Cancelled 0.86 0.86 Glucose Cancelled 74 78 Calcium Cancelled 9.9 9.4 Liver Function 06/08/24 06/08/24 Range/Units 16:57 19:08 Total Bilirubin Cancelled 1.1 H AST Cancelled 27 ALT Cancelled 24 Alkaline Phosphatase Cancelled 58 Albumin Cancelled 4.3 Urine 06/09/24 Range/Units 16:20 Urine Color Yellow Urine Appearance Clear (Clear) Urine pH 7.0 (4.5-7.5) Ur Specific [place] 1.018 (1.000-1.030) Urine Protein Negative (Negative) Urine Glucose (UA) Negative (Negative) Medications Administered Current Inpatient Medications Acetaminophen (Acetaminophen 325 Mg Tab) 650 mg PO QID PRN PRN Reason: pain/fever Stop: 07/09/24 00:05 Aspirin (Aspirin 81 Mg Ectab) 81 mg PO DAILY PHILLIP Stop: 07/09/24 08:59 Last Admin: 06/09/24 10:12 Dose: 81 mg Levetiracetam (Levetiracetam 500 Mg Tab) 1,000 mg PO BID PHILLIP Stop: 07/09/24 08:59 Last Admin: 06/09/24 10:12 Dose: 1,000 mg Lisinopril (Lisinopril 10 Mg Tab) 10 mg PO DAILY PHILLIP Stop: 07/09/24 08:59 Last Admin: 06/09/24 10:12 Dose: 10 mg Lorazepam (Lorazepam 2 Mg/1 Ml Vial) 1 mg IV Q10M PRN PRN Reason: seizures Stop: 07/08/24 23:42 Lorazepam (Lorazepam 0.5 Mg Tab) 0.5 mg PO TID PRN PRN Reason: Anxiety Stop: 07/09/24 00:05 Ondansetron HCl (Ondansetron Inj 2 Mg/Ml 2 Ml Vial) 4 mg IV Q4H PRN PRN Reason: Nausea Stop: 07/09/24 00:05
[2024-06-09] MEDS: ACETAMINOPHEN 325 MG TAB PO PRN (17:35)
[2024-06-10 07:40] LABS: Basophils # (auto) 0.01 K/uL (0.00-0.20); Basophils % (auto) 0.3 %; Eosinophils # (auto) 0.06 K/uL (0.00-0.50); Eosinophils % (auto) 1.8 %; Hematocrit (blood only) 57.4 % (42.0-52.0); Hemoglobin 19.6 g/dl (14.0-18.0); Immature Granulocytes # (auto) 0.01 K/uL (0.01-0.20); Immature Granulocytes % (auto) 0.3 %; Lymphocytes # (auto) 1.16 K/uL (1.20-3.40); Lymphocytes % (auto) 34.3 %; Mean Corpuscular Hemoglobin 30.2 pg (25.0-34.0); Mean Corpuscular Hgb Conc 34.1 g/dL (32.0-36.0); Mean Corpuscular Volume 88.4 fL (80.0-100.0); Mean Platelet Volume 11.8 fL (9.4-12.4); Monocytes # (auto) 0.23 K/uL (0.11-0.59); Monocytes % (auto) 6.8 %; Neutrophils # (auto) 1.91 K/uL (1.40-6.50); Neutrophils % (auto) 56.5 %; Platelet Count 122 K/uL (130-400); RDW Standard Deviation 41.7 fL (36.4-46.3); Red Blood Count 6.49 M/uL (4.70-6.10); White Blood Count 3.38 K/ul (4.8-10.8)
[2024-06-10 07:58] LABS: BUN Creatinine Ratio 16.9 (10-20); Calcium 9.3 mg/dl (8.6-10.3); Creatinine Clr Calc Pharmacy 121.4 ml/min; Magnesium 1.5 mg/dl (1.7-2.4); Potassium 4.3 mmol/L (3.5-5.1)
[2024-06-10] MEDS: MAGNESIUM SULFATE / D5W 1 GM/100 ML BAG IV SCH (08:36)
--- NOTE | 2024-06-10 13:21 | Electrocardiogram Report ---
Test Reason : Blood Pressure : */* mmHG Vent. Rate : 64 BPM Atrial Rate : 64 BPM P-R Int : 196 ms QRS Dur : 118 ms QT Int : 428 ms P-R-T Axes : 91 115 260 degrees QTcB Int : 441 ms Suspect arm lead reversal, interpretation assumes no reversal Normal sinus rhythm Possible Left atrial enlargement Right axis deviation Incomplete right bundle branch block , plus right ventricular hypertrophy Marked T-wave abnormality, consider inferolateral ischemia Abnormal ECG When compared with ECG of 08-Jun-2024 16:50, ST no longer depressed in Anterior leads Inverted T waves have replaced nonspecific T wave abnormality in Inferior leads Confirmed by Kailash Velazquez ([id number]) on 06/10/2024 1:20:48 PM Referred By: Samy [facility] Confirmed By: Kailash Velazquez
[2024-06-10] MEDS: OPTIRAY 320 100ml IV ONE (15:02)
--- NOTE | 2024-06-10 15:19 | CT Scan Report ---
CT head/brain wo/w con CLINICAL HISTORY: Seizure. COMPARISON STUDY: Head CT June 08, 2024. TECHNIQUE: Axial images of the head were obtained before and after intravenous administration of 90 c c of Optiray 320 IV. Automated exposure control was utilized for the study. A dose lowering techniqu e was utilized adhering to the principles of ALARA. FINDINGS: No acute intracranial hemorrhage, midline shift or mass effect is present. Brain volume is normal. Ventricular system is normal. Basal cisterns are patent. There are no extra axial collections . Escalera-white differentiation is maintained. There are no findings to suggest acute dural sinus thromb osis or acute territorial infarct. There is no intracranial mass or pathologic enhancement. There are no calvarial fractures. IMPRESSION: ACT 112: Negative or not required by law. Electronically signed by: Ronaldo Mendoza M.D. 06/10/2024 3:17 PM
--- NOTE | 2024-06-10 15:29 | Hospitalist Progress Note ---
Date of Service June 10, 2024 Assessment & Plan (1) Seizure: Plan: Breakthrough seizures History of childhood seizure disorder Provoked by hypoglycemia, rule out viral illness Seizure precautions, Ativan as needed active seizures Neurology consult Re: Breakthrough seizures Right hypodensity on CT head ED provider already in touch with Dr. Short of [facility] [place] neurolog[place] who recommends brain MRI given abnormal CT head and Keppra load followed by increasing daily Keppra from 750 mg twice daily to to 1 g twice daily. Replace electrolytes Minimal headache but no other symptoms and no postictal state MRI is not compatible due to multiple procedures in the past- likely to have CT head with contrast Discussed with the neurologist on-call in [place] She cannot open the record of the patient and give advice to continue current medications and get a CT of the head with and without contrast CT of the head with and without contrast is unremarkable Plan to continue current medications and possible discharge tomorrow Will get an EEG Valvular heart disease (mild TR/AR, 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 SCDs re: recent head trauma Full code Text document was generated using [employer] ?[employer]?? voice recognition software. It may contain grammatical or spelling errors. Kindly contact undersigned for clarification of any documentation item in question. Admission and Anticipated Discharge Date Admission Date: June 08, 2024 Subjective 06/09/2024 The patient was seen and examined in the emergency room He was admitted with breakthrough seizures and now complains of some headache Denies any other significant symptoms 06/10/2024 The patient was seen and examined in medical telemetry unit He has been stable and complains of minimal headache without any associated symptoms No more seizures since admission Denies any other significant symptoms Review of Systems Review of Systems: All systems reviewed and are unremarkable except as noted below Physical Exam Physical Exam: Lying in bed without any apparent distress Constitutional: + ill appearing and + thin Eyes: PERRL, conjunctivae normal, anicteric sclerae ENMT: external ear and nose normal, oropharynx normal Neck: trachea midline, no thyromegaly Respiratory: no respiratory distress Auscultation: + diminished lung sounds; no crackles Cardiovascular: Rate/Rhythm: regular rate and regular rhythm; not tachycardic Gastrointestinal (Abdomen): Inspection/Auscultation: normal bowel sounds; abdomen not distended Percussion/Palpation: abdomen soft; abdomen nontender Musculoskeletal: No acute arthritis involving any of the joint Neurologic: normal touch/pain/proprioception and moves all extremities; no focal motor deficits Alert, awake and oriented x 3 Lymphatic: no cervical or axillary lymphadenopathy Results & Data Results & Data Vital Signs (Past 12 Hours) Vital Signs Temp Pulse Pulse Pulse Resp BP Pulse Ox 06/10/24 15:25 60 06/10/24 12:25 64 111/72 06/10/24 11:43 37 C 65 18 91/53 L 90 06/10/24 08:23 36.5 C 63 18 109/70 90 06/10/24 07:21 06/10/24 07:16 51 L O2 Del Method 06/10/24 15:25 06/10/24 12:25 06/10/24 11:43 Room Air 06/10/24 08:23 Room Air 06/10/24 07:21 Room Air 06/10/24 07:16 Laboratory Results Short CBC 06/10/24 Range/Units 07:06 WBC 3.38 L (4.8-10.8) K/ul Hgb 19.6 H (14.0-18.0) g/dl Hct 57.4 H (42.0-52.0) % Plt Count 122 L (130-400) K/uL BMP 06/10/24 07:06 Sodium 137 Potassium 4.3 Chloride 106 Carbon Dioxide 25 BUN 15 Creatinine 0.89 Glucose 91 Calcium 9.3 Urine 06/09/24 Range/Units 16:20 Urine Color Yellow Urine Appearance Clear (Clear) Urine pH 7.0 (4.5-7.5) Ur Specific [place] 1.018 (1.000-1.030) Urine Protein Negative (Negative) Urine Glucose (UA) Negative (Negative) Medications Administered Current Inpatient Medications Acetaminophen (Acetaminophen 325 Mg Tab) 650 mg PO QID PRN PRN Reason: pain/fever Stop: 07/09/24 00:05 Last Admin: 06/09/24 17:35 Dose: 650 mg Aspirin (Aspirin 81 Mg Ectab) 81 mg PO DAILY PHILLIP Stop: 07/09/24 08:59 Last Admin: 06/10/24 08:32 Dose: 81 mg Levetiracetam (Levetiracetam 500 Mg Tab) 1,000 mg PO BID PHILLIP Stop: 07/09/24 08:59 Last Admin: 06/10/24 08:32 Dose: 1,000 mg Lisinopril (Lisinopril 10 Mg Tab) 10 mg PO DAILY PHILLIP Stop: 07/09/24 08:59 Last Admin: 06/10/24 08:32 Dose: 10 mg Lorazepam (Lorazepam 2 Mg/1 Ml Vial) 1 mg IV Q10M PRN PRN Reason: seizures Stop: 07/08/24 23:42 Lorazepam (Lorazepam 0.5 Mg Tab) 0.5 mg PO TID PRN PRN Reason: Anxiety Stop: 07/09/24 00:05 Ondansetron HCl (Ondansetron Inj 2 Mg/Ml 2 Ml Vial) 4 mg IV Q4H PRN PRN Reason: Nausea Stop: 07/09/24 00:05
--- NOTE | 2024-06-11 13:19 | Hospitalist Progress Note ---
Date of Service June 11, 2024 Assessment & Plan (1) Seizure: Plan: Breakthrough seizures History of childhood seizure disorder Provoked by hypoglycemia, rule out viral illness Seizure precautions, Ativan as needed active seizures Neurology consult Re: Breakthrough seizures Right hypodensity on CT head ED provider already in touch with Dr. Short of [facility] neurology who recommends brain MRI given abnormal CT head and Keppra load followed by increasing daily Keppra from 750 mg twice daily to to 1 g twice daily. Replace electrolytes Minimal headache but no other symptoms and no postictal state MRI is not compatible due to multiple procedures in the past- likely to have CT head with contrast Discussed with the neurologist on-call in [place] She cannot open the record of the patient and give advice to continue current medications and get a CT of the head with and without contrast CT of the head with and without contrast is unremarkable Plan to continue current medications and possible discharge tomorrow Will get an EEG Looks much better today without any significant symptoms Minimal headache without any other associated symptoms Valvular heart disease (mild TR/AR, 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 SCDs re: recent head trauma Full code Text document was generated using [employer] voice recognition software. It may contain grammatical or spelling errors. Kindly contact undersigned for clarification of any documentation item in question. Admission and Anticipated Discharge Date Admission Date: June 08, 2024 Subjective 06/09/2024 The patient was seen and examined in the emergency room He was admitted with breakthrough seizures and now complains of some headache Denies any other significant symptoms 06/10/2024 The patient was seen and examined in medical telemetry unit He has been stable and complains of minimal headache without any associated symptoms No more seizures since admission Denies any other significant symptoms 06/11/2024 The patient was seen and examined in medical telemetry unit He has been feeling much better today and the headache is minimal Did not have any more seizures since admission He is waiting for EEG Review of Systems Review of Systems: All systems reviewed and are unremarkable except as noted below Physical Exam Physical Exam: Lying in bed without any apparent distress Constitutional: + ill appearing and + thin Eyes: PERRL, conjunctivae normal, anicteric sclerae ENMT: external ear and nose normal, oropharynx normal Neck: trachea midline, no thyromegaly Respiratory: no respiratory distress Auscultation: + diminished lung sounds; no crackles Cardiovascular: Rate/Rhythm: regular rate and regular rhythm; not tachycardic Gastrointestinal (Abdomen): Inspection/Auscultation: normal bowel sounds; abdomen not distended Percussion/Palpation: abdomen soft; abdomen nontender Neurologic: normal touch/pain/proprioception and moves all extremities; no focal motor deficits Lymphatic: no cervical or axillary lymphadenopathy Results & Data Results & Data Vital Signs (Past 12 Hours) Vital Signs Temp Pulse Pulse Resp BP Pulse Ox O2 Del Method 06/11/24 11:30 36.8 C 67 18 107/67 89 L Room Air 06/11/24 08:30 Room Air 06/11/24 08:09 36.6 C 55 L 18 107/66 90 Room Air 06/11/24 07:31 40 L 06/11/24 03:13 36.5 C 59 L 18 91/52 L 89 L Room Air Medications Administered Current Inpatient Medications Acetaminophen (Acetaminophen 325 Mg Tab) 650 mg PO QID PRN PRN Reason: pain/fever Stop: 07/09/24 00:05 Last Admin: 06/10/24 20:06 Dose: 650 mg Aspirin (Aspirin 81 Mg Ectab) 81 mg PO DAILY [facility] Stop: 07/09/24 08:59 Last Admin: 06/11/24 08:30 Dose: 81 mg Levetiracetam (Levetiracetam 500 Mg Tab) 1,000 mg PO BID [facility] Stop: 07/09/24 08:59 Last Admin: 06/11/24 08:30 Dose: 1,000 mg Lisinopril (Lisinopril 10 Mg Tab) 10 mg PO DAILY [facility] Stop: 07/09/24 08:59 Last Admin: 06/11/24 08:30 Dose: 10 mg Lorazepam (Lorazepam 2 Mg/1 Ml Vial) 1 mg IV Q10M PRN PRN Reason: seizures Stop: 07/08/24 23:42 Lorazepam (Lorazepam 0.5 Mg Tab) 0.5 mg PO TID PRN PRN Reason: Anxiety Stop: 07/09/24 00:05 Ondansetron HCl (Ondansetron Inj 2 Mg/Ml 2 Ml Vial) 4 mg IV Q4H PRN PRN Reason: Nausea Stop: 07/09/24 00:05
[2024-06-12 06:03] LABS: BUN Creatinine Ratio 20.8 (10-20); Calcium 9.9 mg/dl (8.6-10.3); Creatinine Clr Calc Pharmacy 106.9 ml/min; Magnesium 1.5 mg/dl (1.7-2.4)
[2024-06-12 06:09] LABS: Troponin I High Sensitivity 5.9 pg/ml (0-20)
[2024-06-12 07:26] LABS: Basophils # (auto) 0.02 K/uL (0.00-0.20); Basophils % (auto) 0.5 %; Eosinophils # (auto) 0.11 K/uL (0.00-0.50); Hematocrit (blood only) 60.8 % (42.0-52.0); Hemoglobin 20.5 g/dl (14.0-18.0); Immature Granulocytes # (auto) 0.01 K/uL (0.01-0.20); Immature Granulocytes % (auto) 0.3 %; Lymphocytes # (auto) 1.39 K/uL (1.20-3.40); Lymphocytes % (auto) 37.8 %; Mean Corpuscular Hemoglobin 29.9 pg (25.0-34.0); Mean Corpuscular Hgb Conc 33.7 g/dL (32.0-36.0); Mean Corpuscular Volume 88.8 fL (80.0-100.0); Mean Platelet Volume 11.2 fL (9.4-12.4); Monocytes # (auto) 0.25 K/uL (0.11-0.59); Monocytes % (auto) 6.8 %; Neutrophils % (auto) 51.6 %; Platelet Count 126 K/uL (130-400); RDW Coefficient of Variation 13.5 % (11.5-14.5); RDW Standard Deviation 41.6 fL (36.4-46.3); Red Blood Count 6.85 M/uL (4.70-6.10); White Blood Count 3.68 K/ul (4.8-10.8)
[2024-06-12] MEDS: MAGNESIUM SULFATE / D5W 1 GM/100 ML BAG IV SCH (07:26)
--- NOTE | 2024-06-12 12:45 | Hospitalist Progress Note ---
Date of Service June 12, 2024 Assessment & Plan (1) Seizure: Plan: Breakthrough seizures History of childhood seizure disorder Provoked by hypoglycemia, rule out viral illness Seizure precautions, Ativan as needed active seizures Neurology consult Re: Breakthrough seizures Right hypodensity on CT head ED provider already in touch with Dr. Short of [facility] neurology who recommends brain MRI given abnormal CT head and Keppra load followed by increasing daily Keppra from 750 mg twice daily to to 1 g twice daily. Replace electrolytes Minimal headache but no other symptoms and no postictal state MRI is not compatible due to multiple procedures in the past- likely to have CT head with contrast Discussed with the neurologist on-call in [place] She cannot open the record of the patient and give advice to continue current medications and get a CT of the head with and without contrast CT of the head with and without contrast is unremarkable Plan to continue current medications and possible discharge tomorrow Will get an EEG Looks much better today without any significant symptoms Minimal headache without any other associated symptoms Denies any symptoms today Awaiting EEG Bradyarrhythmias H/OValvular heart disease (mild TR/AR, TTE 2023) 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 SCDs re: recent head trauma Full code Text document was generated using [employer] voice recognition software. It may contain grammatical or spelling errors. Kindly contact undersigned for clarification of any documentation item in question. Admission and Anticipated Discharge Date Admission Date: June 08, 2024 Subjective 06/09/2024 The patient was seen and examined in the emergency room He was admitted with breakthrough seizures and now complains of some headache Denies any other significant symptoms 06/10/2024 The patient was seen and examined in medical telemetry unit He has been stable and complains of minimal headache without any associated symptoms No more seizures since admission Denies any other significant symptoms 06/11/2024 The patient was seen and examined in medical telemetry unit He has been feeling much better today and the headache is minimal Did not have any more seizures since admission He is waiting for EEG 06/12/2024 The patient was seen and examined in medical telemetry unit He was noted to have a heart rate of lower 30s specially when he is sleeping Denies any symptoms with it when waking up Heart rate goes up to lower 60s while awake No more seizures since admission Review of Systems Review of Systems: All systems reviewed and are unremarkable except as noted below Physical Exam Physical Exam: Lying in bed without any apparent distress Constitutional: + ill appearing and + thin Eyes: PERRL, conjunctivae normal, anicteric sclerae ENMT: external ear and nose normal, oropharynx normal Neck: trachea midline, no thyromegaly Respiratory: no respiratory distress Auscultation: + diminished lung sounds; no crackles Cardiovascular: Rate/Rhythm: regular rate, regular rhythm and + bradycardic Heart Sounds: normal S1, normal S2 and + murmur Extremities: no edema Gastrointestinal (Abdomen): Inspection/Auscultation: normal bowel sounds; abdomen not distended Percussion/Palpation: abdomen soft; abdomen nontender Musculoskeletal: No acute arthritis involving any of the joint Neurologic: normal touch/pain/proprioception and moves all extremities; no focal motor deficits Lymphatic: no cervical or axillary lymphadenopathy Results & Data Results & Data Vital Signs (Past 12 Hours) Vital Signs Temp Pulse Pulse Resp BP Pulse Ox O2 Del Method 06/12/24 11:33 36.8 C 66 18 114/68 90 Room Air 06/12/24 08:11 36.6 C 55 L 18 116/65 91 Nasal Cannula 06/12/24 07:07 34 L 06/12/24 03:08 36.6 C 59 L 16 109/70 88 L Room Air O2 Flow Rate 06/12/24 11:33 06/12/24 08:11 5 06/12/24 07:07 06/12/24 03:08 Laboratory Results Short CBC 06/12/24 Range/Units 05:24 WBC 3.68 L (4.8-10.8) K/ul Hgb 20.5 H (14.0-18.0) g/dl Hct 60.8 H (42.0-52.0) % Plt Count 126 L (130-400) K/uL BMP 06/12/24 05:24 Sodium 135 L Potassium 4.0 Chloride 101 Carbon Dioxide 27 BUN 21 Creatinine 1.01 Glucose 82 Calcium 9.9 Medications Administered Current Inpatient Medications Acetaminophen (Acetaminophen 325 Mg Tab) 650 mg PO QID PRN PRN Reason: pain/fever Stop: 07/09/24 00:05 Last Admin: 06/11/24 23:21 Dose: 650 mg Aspirin (Aspirin 81 Mg Ectab) 81 mg PO DAILY [facility] Stop: 07/09/24 08:59 Last Admin: 06/12/24 09:19 Dose: 81 mg Levetiracetam (Levetiracetam 500 Mg Tab) 1,000 mg PO BID [facility] Stop: 07/09/24 08:59 Last Admin: 06/12/24 09:20 Dose: 1,000 mg Lisinopril (Lisinopril 10 Mg Tab) 10 mg PO DAILY [facility] Stop: 07/09/24 08:59 Last Admin: 06/12/24 09:20 Dose: 10 mg Lorazepam (Lorazepam 2 Mg/1 Ml Vial) 1 mg IV Q10M PRN PRN Reason: seizures Stop: 07/08/24 23:42 Lorazepam (Lorazepam 0.5 Mg Tab) 0.5 mg PO TID PRN PRN Reason: Anxiety Stop: 07/09/24 00:05 Ondansetron HCl (Ondansetron Inj 2 Mg/Ml 2 Ml Vial) 4 mg IV Q4H PRN PRN Reason: Nausea Stop: 07/09/24 00:05
--- NOTE | 2024-06-12 13:03 | Cardiology Consultation ---
Date of Consultation June 12, 2024 Assessment & Plan (1) Sinus bradycardia: (2) Hypoplastic left heart syndrome: (3) S/P Fontan procedure: (4) Seizure: Plan The patient is certainly at risk for conduction system disease and atrial arrhythmias given his history of congenital heart disease. Although if he is having intermittent profound bradycardia this could mimic a seizure episode, he appears to have a previously diagnosed known seizure disorder. No symptoms were noted during the bradycardia these episodes occurred during sleep, as he had to be awakened for me to interview/examine him. Heart rates have proven to be normal when he is awake. He is on Keppra as an outpatient and levels were checked this admission over at the lower limit of the therapeutic range. Recommend ongoing monitoring on telemetry. Mild hypomagnesemia noted which is being replaced intravenously. I placed a request for records from his outpatient information technology professor, [facility], Bina Walls MD, of Pediatric / Adult congenital cardiology. I am not sure if the [facility] has these records of if they would need to be obtained from [place]. Recommend that he continues to maintain outpatient follow-up.Continue outpatient treatment with lisinopril. I do not think a repeat echocardiogram is indicated at this time as he has has had a relatively recent outpatient echocardiogram. History of Present Illness Attending Physician: George Forrest MD History of Present Illness Juanito Arndt is a 29 year old inmate seen in cardiology consultation per the request of Dr Forrest for the evaluation of bradycardia. Patient initially admitted via the emergency department on 06/08/2024 after having had two witnessed siezures at the [facility]. Patient notes that he has no recollection of the actual event the next thing he knew he woke up in the hospital. He has reportedly had a seizure disorder since the age of 10 and had previously been on Keppra. He states that he had been off of antiseizure medications for about 10 years and then had recurrent issues about a year ago prompting him to be placed back on the medication. He has felt well since admission with transient dizziness last evening. Telemetry reveals sinus rhythm in the 60s for the most part, but early this morning between 5 am and 8:30 am he did have transient sinus bradycardia to the 30s-40s that seemingly correlated with when he was sleeping. Is uncertain whether or not the patient's subjective dizziness that he recalls from last night correlates with any bradycardia at all. There is no evidence of heart block or pauses on his telemetry. Past Cardiac History: Patient has a history of hypoplastic left heart syndrome for which he underwent 3 surgeries as an with a Fontan procedure. He states that he follows with [facility], Bina Walls MD, of Pediatric / Adult congenital cardiology, usual visits about every 6 months and at his last visit about 3 months ago and is due to return in September 2024. He denies any past concerns with regards to arrhythmias when seeing his outpatient information technology professor. He describes having had an echocardiogram at [place] with his most recent visit and was told the findings were stable per the best of his recollection. Allergies Allergy/AdvReac Type Severity Reaction Status Date / Time No Known Allergies Allergy Unverified 06/08/24 21:59 Home Medications Medication Instructions Recorded Confirmed Type acetaminophen 500 mg PO PRN Pain 06/08/24 History aspirin 81 mg PO DAILY 06/08/24 06/08/24 History levetiracetam 750 mg PO BID seizures 06/08/24 06/08/24 History lisinopril 10 mg PO DAILY 06/08/24 06/08/24 History Patient History Social History Smoking Status: Never smoker Hx Alcohol Use: No Hx Substance Use: No Preferred Language: Wolof Communication Ability: Effective Belt Sewer Required: No Beliefs That Will Affect Care: None Current Living Situation: Other Current Living Situation Comment: [facility] Other Information That Helps Us Care for You: No Feels Safe at Home: Yes Review of Systems Review of Systems: All systems reviewed & are unremarkable except as noted in HPI & below Physical Exam Physical Exam: General: no acute distress and stated age Eyes: conjunctiva are pink and non-injected, sclera clear Neck: normal jugular venous pulse, no hepatojugular reflux Chest: normal shape and normal respiratory effort Lungs: clear to auscultation and percussion Cardiac Exam: - regular heart sounds, no murmurs, rubs, or gallops, no jugular venous distention Abdomen: abdomen soft, non-tender, no abnormal masses and no hepatosplenomegaly Musculoskeletal: no gait disturbance, no weakness Extremities: no edema and no cyanosis Neuro:awake, conversant, follows commands, no focal motor deficits Psych: appropriate affect and insight. Results & Data Vital Signs (Past 12 Hours) Vital Signs Temp Pulse Pulse Resp BP Pulse Ox O2 Del Method 06/12/24 11:33 36.8 C 66 18 114/68 90 Room Air 06/12/24 08:11 36.6 C 55 L 18 116/65 91 Nasal Cannula 06/12/24 07:07 34 L 06/12/24 03:08 36.6 C 59 L 16 109/70 88 L Room Air O2 Flow Rate 06/12/24 11:33 06/12/24 08:11 5 06/12/24 07:07 06/12/24 03:08 Laboratory Results Cardiac Enzymes 06/12/24 Range/Units 05:24 Troponin I High Sens 5.9 (0-20) pg/ml CBC 06/12/24 Range/Units 05:24 WBC 3.68 L (4.8-10.8) K/ul RBC 6.85 H (4.70-6.10) M/uL Hgb 20.5 H (14.0-18.0) g/dl Hct 60.8 H (42.0-52.0) % Plt Count 126 L (130-400) K/uL Neut # (Auto) 1.90 (1.40-6.50) K/uL Lymph # (Auto) 1.39 (1.20-3.40) K/uL [place] # (Auto) 0.25 (0.11-0.59) K/uL Eos # (Auto) 0.11 (0.00-0.50) K/uL Baso # (Auto) 0.02 (0.00-0.20) K/uL Comprehensive Metabolic Panel 06/12/24 Range/Units 05:24 Sodium 135 L (136-145) mmol/L Potassium 4.0 (3.5-5.1) mmol/L Chloride 101 (98-107) mmol/L Carbon Dioxide 27 (21-32) mmol/L BUN 21 (6-23) mg/dl Creatinine 1.01 (0.6-1.4) mg/dl Glucose 82 (70-99(Fasting)) mg/dl Calcium 9.9 (8.6-10.3) mg/dl Intake and Output 06/11/24 06/12/24 06/12/24 22:59 06:59 14:59 Intake Total 194.167 / 194.167 Output Total 500 / 800 300 / 800 Balance -500 / -800 -300 / -800 194.167 / 194.167 Intake: IV 194.167 / 194.167 Magnesium Sulfate / D5w 1 gm In 194.167 / 194.167 100 ml @ 50 mls/hr IV Q2H [facility] Rx#:[id number] Output: Urine 500 / 800 300 / 800 Other: Other Intake Source sips Weight 77 kg Weight Measurement Method Built in [facility] Diagnostic Findings EKG performed 06/12/2024 at 5:22 AM and reviewed/interpreted dependently: Marked sinus bradycardia at 40 bpm with first-degree AV block and premature atrial contractions, right bundle branch block, diffuse repolarization abnormalities consistent with ventricular hypertrophy -Compared to the previous tracing dated 06/09/2024, the repolarization abnormalities are relatively unchanged -The repolarization abnormalities are also relatively unchanged compared to previous EKG dating back to 02/11/2024 Pediatric/adult congenital echocardiogram performed 01/25/2024 interpreted by pediatric department at [facility] Describes dilated heavy trabeculated right ventricle (systemic ventricle) with mildly depressed systolic function globally Mild tricuspid regurgitation Pulmonary venous return appears unobstructed to the systemic RV Unobstructed arch Pulmonary arteries and Fontan baffle not delineated No pericardial effusion
--- NOTE | 2024-06-13 11:12 | Cardiology Progress Note ---
Date of Service June 13, 2024 Assessment & Plan (1) Sinus bradycardia: (2) Hypoplastic left heart syndrome: (3) S/P Fontan procedure: (4) Seizure: Plan 06/12/[address] Samuel The patient is certainly at risk for conduction system disease and atrial arrhythmias given his history of congenital heart disease. Although if he is having intermittent profound bradycardia this could mimic a seizure episode, he appears to have a previously diagnosed known seizure disorder. No symptoms were noted during the bradycardia these episodes occurred during sleep, as he had to be awakened for me to interview/examine him. Heart rates have proven to be normal when he is awake. He is on Keppra as an outpatient and levels were checked this admission over at the lower limit of the therapeutic range. Recommend ongoing monitoring on telemetry. Mild hypomagnesemia noted which is being replaced intravenously. I placed a request for records from his outpatient case filler, [facility], Bina Walls MD, of Pediatric / Adult congenital cardiology. I am not sure if the [facility] has these records of if they would need to be obtained from [place]. Recommend that he continues to maintain outpatient follow-up.Continue outpatient treatment with lisinopril. I do not think a repeat echocardiogram is indicated at this time as he has has had a relatively recent outpatient echocardiogram. 06/13/24 Patient doing well this morning. No recurrent events overnight or this morning. Remains sinus and mild sinus bradycardia on telemetry. No pauses or high degree AV block. Avoid AV melvin blocking agents. Continue ASA and lisinopril. Recheck labs and replace magnesium as needed. Pending. No further cardiac testing warranted at this time. Patient should follow up with his primary cardiology team at [facility] as scheduled in September. Will sign off. Please contact technology methodology consultant cardiology provider with additional questions or concerns. Case discussed with Dr. Larkin I spent a total of 35 minutes on the date of service in preparation, delivery, and documentation of the care provided to this patient, excluding any time spent in the performance of separately billed services. Dorota Vásquez PA-C Department of Cardiology, [facility] This chart was completed in part utilizing [employer] Voice Recognition Software. Grammatical errors, random word insertions, pronoun errors, and incomplete sentences are an occasional consequence of this system due to software limitations, ambient noise, and hardware issues. Any formal questions or concerns about the content, text, or information contained within the body of this dictation should be directly addressed to the provider for clarification. Admission and Anticipated Discharge Date Admission Date: June 08, 2024 Supervising Physician Co-Signing Physician Notes I have personally performed a history and physical examination on the patient. I have reviewed the advance practitioner's documentation, and I agree with, and take responsibility for the plan of care. 29-year-old male with tree of hypoplastic left heart syndrome status post Fontan procedure. Asymptomatic sinus bradycardia noted on telemetry primarily during sleep. No further cardiac testing or intervention warranted at this time. Recommend outpatient cardiology follow-up with patient's adult congenital heart disease specialist in [place]. Cardiology will sign off. Please call with additional concerns/questions. I spent a total of 25 minutes on the date of service in preparation, delivery, and documentation of the care provided to this patient, excluding any time spent in the performance of separately billed services. Kel Larkin DO, [facility] Subjective Patient sleeping. Awakened easily. No recurrent dizziness, lightheadedness. No syncope or near syncope. No chest pain or dyspnea. Voices no concerns or complaints. Review of Systems Review of Systems: All systems reviewed & are unremarkable except as noted in HPI & below Physical Exam Physical Exam: General: no acute distress and stated age Eyes: conjunctiva are pink and non-injected, sclera clear Neck: normal jugular venous pulse, no hepatojugular reflux Chest: normal shape and normal respiratory effort Lungs: clear to auscultation and percussion Cardiac Exam: - regular heart sounds, no murmurs, rubs, or gallops, no jugular venous distention Abdomen: abdomen soft, non-tender, no abnormal masses and no hepatosplenomegaly Musculoskeletal: no gait disturbance, no weakness Extremities: no edema and no cyanosis Neuro:awake, conversant, follows commands, no focal motor deficits Psych: appropriate affect and insight. Results & Data Vital Signs (Past 12 Hours) Vital Signs Temp Pulse Pulse Resp BP Pulse Ox O2 Del Method 06/13/24 09:57 Room Air 06/13/24 07:51 36.6 C 65 18 109/72 88 L Room Air 06/13/24 07:12 48 L 06/13/24 03:02 36.5 C 57 L 18 108/69 90 Room Air Laboratory Results Intake and Output 06/12/24 06/13/24 06/13/24 22:59 06:59 14:59 Intake Total 360 / 914.167 Output Total 350 / 650 Balance -350 / 264.167 360 / 264.167 Intake: Oral 360 / 720 Output: Urine 350 / 650 Other: Weight 74.616 kg Weight Measurement Method Built in [facility] Diagnostic Findings Telemetry reviewed: NSR and sinus bradycardia. HR's predominantly 50's during sleep and 60's while awake. No pauses or high degree AV block. Medications Administered Current Inpatient Medications Acetaminophen (Acetaminophen 325 Mg Tab) 650 mg PO QID PRN PRN Reason: pain/fever Stop: 07/09/24 00:05 Last Admin: 06/11/24 23:21 Dose: 650 mg Aspirin (Aspirin 81 Mg Ectab) [address] [facility] Stop: 07/09/24 08:59 Last Admin: 06/13/24 09:41 Dose: 81 mg Levetiracetam (Levetiracetam 500 Mg Tab) 1,000 mg PO BID [facility] Stop: 07/09/24 08:59 Last Admin: 06/13/24 09:41 Dose: 1,000 mg Lisinopril (Lisinopril 10 Mg Tab) 10 mg PO DAILY [facility] Stop: 07/09/24 08:59 Last Admin: 06/13/24 09:41 Dose: 10 mg Lorazepam (Lorazepam 2 Mg/1 Ml Vial) 1 mg IV Q10M PRN PRN Reason: seizures Stop: 07/08/24 23:42 Lorazepam (Lorazepam 0.5 Mg Tab) 0.5 mg PO TID PRN PRN Reason: Anxiety Stop: 07/09/24 00:05 Ondansetron HCl (Ondansetron Inj 2 Mg/Ml 2 Ml Vial) 4 mg IV Q4H PRN PRN Reason: Nausea Stop: 07/09/24 00:05
[2024-06-13 11:20] LABS: Basophils # (auto) 0.01 K/uL (0.00-0.20); Basophils % (auto) 0.4 %; Eosinophils # (auto) 0.03 K/uL (0.00-0.50); Eosinophils % (auto) 1.1 %; Hematocrit (blood only) 56.5 % (42.0-52.0); Hemoglobin 19.8 g/dl (14.0-18.0); Lymphocytes # (auto) 0.65 K/uL (1.20-3.40); Lymphocytes % (auto) 24.1 %; Mean Corpuscular Volume 85.5 fL (80.0-100.0); Mean Platelet Volume 11.7 fL (9.4-12.4); Monocytes # (auto) 0.21 K/uL (0.11-0.59); Monocytes % (auto) 7.8 %; Neutrophils % (auto) 66.6 %; Platelet Count 141 K/uL (130-400); RDW Coefficient of Variation 13.2 % (11.5-14.5); RDW Standard Deviation 39.3 fL (36.4-46.3); Red Blood Count 6.61 M/uL (4.70-6.10)
[2024-06-13 11:30] LABS: BUN Creatinine Ratio 20.7 (10-20); Calcium 9.6 mg/dl (8.6-10.3); Creatinine Clr Calc Pharmacy 131.7 ml/min; Magnesium 1.3 mg/dl (1.7-2.4); Potassium 4.2 mmol/L (3.5-5.1)
--- NOTE | 2024-06-13 11:58 | Hospitalist Progress Note ---
Date of Service June 13, 2024 Assessment & Plan (1) Seizure: Plan: Breakthrough seizures History of childhood seizure disorder Provoked by hypoglycemia, rule out viral illness Seizure precautions, Ativan as needed active seizures Neurology consult Re: Breakthrough seizures Right hypodensity on CT head ED provider already in [place] [facility] [place] who recommends brain MRI given abnormal CT head and Keppra load followed by increasing daily Keppra from 750 mg twice daily to to 1 g twice daily. Replace electrolytes Minimal headache but no other symptoms and no postictal state MRI is not compatible due to multiple procedures in the past- likely to have CT head with contrast Discussed with the neurologist on-call in [place] She cannot open the record of the patient and give advice to continue current medications and get a CT of the head with and without contrast CT of the head with and without contrast is unremarkable Plan to continue current medications and possible discharge tomorrow Will get an EEG Looks much better today without any significant symptoms Minimal headache without any other associated symptoms Denies any symptoms today EEG is done and awaiting report Likely discharge in a day or 2 on antiseizure medications Will need to have outpatient neurology appointment within 4 to 6 weeks Bradyarrhythmias H/OValvular heart disease (mild TR/AR, TTE 2023) 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 Denies any cardiac symptoms of chest pain, palpitation or shortness of breath Noted to have significant bradycardia arrhythmias specially while sleeping and resting in the bed without any symptoms His borderline low magnesium was replaced and no other electrolyte abnormalities and he is not on any beta-jesusita Has significant cardiac surgery due to congenital heart disease Appreciate cardiology input and recommendation No further cardiac workup and he will need to have follow-up with 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 SCDs re: recent head trauma Full code Text document was generated using [employer] voice recognition software. It may contain grammatical or spelling errors. Kindly contact undersigned for clarification of any documentation item in question. Admission and Anticipated Discharge Date Admission Date: June 08, 2024 Subjective 06/09/2024 The patient was seen and examined in the emergency room He was admitted with breakthrough seizures and now complains of some headache Denies any other significant symptoms 06/10/2024 The patient was seen and examined in medical telemetry unit He has been stable and complains of minimal headache without any associated symptoms No more seizures since admission Denies any other significant symptoms 06/11/2024 The patient was seen and examined in medical telemetry unit He has been feeling much better today and the headache is minimal Did not have any more seizures since admission He is waiting for EEG 06/12/2024 The patient was seen and examined in medical telemetry unit He was noted to have a heart rate of lower 30s specially when he is sleeping Denies any symptoms with it when waking up Heart rate goes up to lower 60s while awake No more seizures since admission 06/13/2024 The patient was seen and examined in medical telemetry unit He has been doing much better and did not have any more seizures His heart rate remained around 60s and did not have any more bradycardia Cardiology team signed off Review of Systems Review of Systems: All systems reviewed and are unremarkable except as noted below Physical Exam Physical Exam: Lying in bed without any apparent distress Constitutional: + ill appearing and + thin Eyes: PERRL, conjunctivae normal, anicteric sclerae ENMT: external ear and nose normal, oropharynx normal Neck: trachea midline, no thyromegaly Respiratory: no respiratory distress Auscultation: + diminished lung sounds; no crackles Cardiovascular: Rate/Rhythm: regular rate, regular rhythm and + bradycardic; not tachycardic Heart Sounds: normal S1, normal S2 and + murmur Extremities: no edema Gastrointestinal (Abdomen): Inspection/Auscultation: normal bowel sounds; abdomen not distended Percussion/Palpation: abdomen soft; abdomen nontender Neurologic: normal touch/pain/proprioception and moves all extremities; no focal motor deficits Lymphatic: no cervical or axillary lymphadenopathy Results & Data Results & Data Vital Signs (Past 12 Hours) Vital Signs Temp Pulse Pulse Resp BP Pulse Ox O2 Del Method 06/13/24 11:30 36.6 C 63 18 105/68 90 Room Air 06/13/24 09:57 Room Air 06/13/24 07:51 36.6 C 65 18 109/72 88 L Room Air 06/13/24 07:12 48 L 06/13/24 03:02 36.5 C 57 L 18 108/69 90 Room Air Laboratory Results Short CBC 06/13/24 Range/Units 10:28 WBC 2.70 L (4.8-10.8) K/ul Hgb 19.8 H (14.0-18.0) g/dl Hct 56.5 H (42.0-52.0) % Plt Count 141 (130-400) K/uL BMP 06/13/24 10:28 Sodium 134 L Potassium 4.2 Chloride 102 Carbon Dioxide 25 BUN 17 Creatinine 0.82 Glucose 90 Calcium 9.6 Medications Administered Current Inpatient Medications Acetaminophen (Acetaminophen 325 Mg Tab) 650 mg PO QID PRN PRN Reason: pain/fever Stop: 07/09/24 00:05 Last Admin: 06/11/24 23:21 Dose: 650 mg Aspirin (Aspirin 81 Mg Ectab) 81 mg PO DAILY [facility] Stop: 07/09/24 08:59 Last Admin: 06/13/24 09:41 Dose: 81 mg Levetiracetam (Levetiracetam 500 Mg Tab) 1,000 mg PO BID [facility] Stop: 07/09/24 08:59 Last Admin: 06/13/24 09:41 Dose: 1,000 mg Lisinopril (Lisinopril 10 Mg Tab) 10 mg PO DAILY [facility] Stop: 07/09/24 08:59 Last Admin: 06/13/24 09:41 Dose: 10 mg Lorazepam (Lorazepam 2 Mg/1 Ml Vial) 1 mg IV Q10M PRN PRN Reason: seizures Stop: 07/08/24 23:42 Lorazepam (Lorazepam 0.5 Mg Tab) 0.5 mg PO TID PRN PRN Reason: Anxiety Stop: 07/09/24 00:05 Ondansetron HCl (Ondansetron Inj 2 Mg/Ml 2 Ml Vial) 4 mg IV Q4H PRN PRN Reason: Nausea Stop: 07/09/24 00:05
[2024-06-13] MEDS: MAGNESIUM SULFATE / D5W 1 GM/100 ML BAG IV SCH (12:45)
--- NOTE | 2024-06-13 17:03 | Electrocardiogram Report ---
Test Reason : Blood Pressure : */* mmHG Vent. Rate : 40 BPM Atrial Rate : 40 BPM P-R Int : 214 ms QRS Dur : 144 ms QT Int : 474 ms P-R-T Axes : 31 108 -88 degrees QTcB Int : 386 ms Marked sinus bradycardia with 1st degree A-V block with Premature atrial complexes Right bundle branch block T wave abnormality, consider inferolateral ischemia Abnormal ECG When compared with ECG of 09-Jun-2024 16:12, Premature atrial complexes are now Present Vent. rate has decreased by 24 bpm Confirmed by Dewayne Ocasio ([id number]) on 06/13/2024 5:02:36 PM Referred By: Samy GARCIA Confirmed By: Dewayne Ocasio
--- NOTE | 2024-06-14 06:33 | Electroencephalogram ---
EEG Procedure Note Date of Service June 13 2024 Start / End Times Start Time: 605 End Time: [address] Forrest History A 29 year old male w possible seizure. EEG performed for evaluation of epileptiform activity. Home Medication List Medication Instructions Recorded Confirmed Type acetaminophen 500 mg PO PRN Pain 06/08/24 History aspirin 81 mg PO DAILY 06/08/24 06/08/24 History levetiracetam 750 mg PO BID seizures 06/08/24 06/08/24 History lisinopril 10 mg PO DAILY 06/08/24 06/08/24 History Inpatient Medication List Acetaminophen (Acetaminophen 325 Mg Tab) 650 mg PO QID PRN PRN Reason: pain/fever Stop: 07/09/24 00:05 Last Admin: 06/11/24 23:21 Dose: 650 mg Documented By: JORGE LUIS Admin: 06/10/24 20:06 Dose: 650 mg Documented By: JORGE LUIS Admin: 06/09/24 17:35 Dose: 650 mg Documented By: AYANA Aspirin (Aspirin 81 Mg Ectab) 81 mg PO DAILY [facility] Stop: 07/09/24 08:59 Last Admin: 06/13/24 09:41 Dose: 81 mg Documented By: Admin: 06/12/24 09:19 Dose: 81 mg Documented By: Admin: 06/11/24 08:30 Dose: 81 mg Documented By: Admin: 06/10/24 08:32 Dose: 81 mg Documented By: Admin: 06/09/24 10:12 Dose: 81 mg Documented By: MISSY Levetiracetam (Levetiracetam 500 Mg Tab) 1,000 mg PO BID [facility] Stop: 07/09/24 08:59 Last Admin: 06/13/24 19:58 Dose: 1,000 mg Documented By: Admin: 06/13/24 09:41 Dose: 1,000 mg Documented By: Admin: 06/12/24 21:13 Dose: 1,000 mg Documented By: hiv prevention specialist: 06/12/24 09:20 Dose: 1,000 mg Documented By: Admin: 06/11/24 20:37 Dose: 1,000 mg Documented By: JORGE LUIS Admin: 06/11/24 08:30 Dose: 1,000 mg Documented By: Admin: 06/10/24 19:59 Dose: 1,000 mg Documented By: Admin: 06/10/24 08:32 Dose: 1,000 mg Documented By: Admin: 06/09/24 21:29 Dose: 1,000 mg Documented By: Admin: 06/09/24 10:12 Dose: 1,000 mg Documented By: MISSY Lisinopril (Lisinopril 10 Mg Tab) 10 mg PO DAILY [facility] Stop: 07/09/24 08:59 Last Admin: 06/13/24 09:41 Dose: 10 mg Documented By: KADwayne Admin: 06/12/24 09:20 Dose: 10 mg Documented By: Admin: 06/11/24 08:30 Dose: 10 mg Documented By: Admin: 06/10/24 08:32 Dose: 10 mg Documented By: Admin: 06/09/24 10:12 Dose: 10 mg Documented By: MISSY Discontinued Medications Acetaminophen (Ofirmev) 1,000 mg in 100 mls @ 400 mls/hr IV NOW STA Stop: 06/08/24 17:45 Last Infusion: 06/08/24 18:59 Dose: Infused Documented By: NRDwayne Admin: 06/08/24 18:35 Dose: 400 mls/hr Documented By: HEMAL Sodium Chloride (Nss) 500 mls @ 999 mls/hr IV .Q31M ONE Stop: 06/08/24 21:16 Last Infusion: 06/08/24 21:52 Dose: Infused Documented By: Admin: 06/08/24 21:00 Dose: 999 mls/hr Documented By: HEMAL Sodium Chloride (Nss) 1,000 mls @ 125 mls/hr IV .Q8H [facility] Stop: 06/09/24 20:59 Last Admin: 06/08/24 21:53 Dose: Not Given Documented By: HEMAL Magnesium Sulfate/Dextrose (Magnesium Sulfate / D5w) 1 gm in 100 mls @ 50 mls/hr IV Q2H [facility] Stop: 06/09/24 01:14 Last Infusion: 06/09/24 02:37 Dose: Infused Documented By: Admin: 06/09/24 00:19 Dose: 50 mls/hr Documented By: Infusion: 06/09/24 00:19 Dose: Infused Documented By: Admin: 06/08/24 22:35 Dose: 50 mls/hr Documented By: PATSY Sodium Chloride (Nss) 1,000 mls @ 60 mls/hr IV .[id number] ONE Stop: 06/09/24 13:53 Last Infusion: 06/09/24 15:26 Dose: Infused Documented By: Admin: 06/08/24 21:53 Dose: 60 mls/hr Documented By: HEMAL Magnesium Sulfate/Dextrose (Magnesium Sulfate / D5w) 1 gm in 100 mls @ 50 mls/hr IV Q2H [facility] Stop: 06/10/24 12:29 Last Infusion: 06/10/24 12:24 Dose: Infused Documented By: Admin: 06/10/24 10:24 Dose: 50 mls/hr Documented By: Infusion: 06/10/24 10:24 Dose: Infused Documented By: Admin: 06/10/24 08:36 Dose: 50 mls/hr Documented By: JOSE Magnesium Sulfate/Dextrose (Magnesium Sulfate / D5w) 1 gm in 100 mls @ 50 mls/hr IV Q2H [facility] Stop: 06/12/24 11:14 Last Infusion: 06/12/24 11:22 Dose: Infused Documented By: Admin: 06/12/24 09:19 Dose: 50 mls/hr Documented By: Infusion: 06/12/24 09:19 Dose: Infused Documented By: Admin: 06/12/24 07:26 Dose: 50 mls/hr Documented By: TMP Magnesium Sulfate/Dextrose (Magnesium Sulfate / D5w) 1 gm in 100 mls @ 50 mls/hr IV Q2H [facility] Stop: 06/13/24 15:59 Last Infusion: 06/13/24 19:57 Dose: Infused Documented By: Admin: 06/13/24 17:36 Dose: 50 mls/hr Documented By: Infusion: 06/13/24 14:50 Dose: Infused Documented By: Admin: 06/13/24 12:45 Dose: 50 mls/hr Documented By: JONES Ioversol (Optiray 320 100ml) 90 ml IV ONCE ONE Stop: 06/10/24 15:01 Last Admin: 06/10/24 15:02 Dose: 90 ml Documented By: DAFNE Ketorolac Tromethamine (Ketorolac Tromethamine 15 Mg/Ml Vial) 15 mg IV NOW ONE Stop: 06/09/24 00:07 Last Admin: 06/09/24 02:06 Dose: Not Given Documented By: FELICIANO Levetiracetam (Levetiracetam 500 Mg/5 Ml Vial) 2,500 mg IV NOW STA Stop: 06/08/24 20:46 Last Admin: 06/08/24 21:53 Dose: 2,500 mg Documented By: NRB Miscellaneous Information (Patient's Allergy Info Needs Entered) 1 each N/A NOW STA Stop: 06/08/24 21:23 Last Admin: 06/08/24 22:33 Dose: Not Given Documented By: NRB Description This is a 21 electrode EEG with a single channel dedicated to limited EKG. The electrodes were placed in accordance with the International 10-20 system. REPORT: At the onset of the EEG the patient is drowsy. The posterior dominant rhythm is 9 Hz. Drowsiness is characterized by an admixture of 6-7 theta activity. No stage II sleep transients are seen. Focal slowing in the right parasagittal head region which might be artifact. Interpretation IMPRESSION: This is an abnormal drowsy routine EEG due to focal slowing in the right parasagittal head region which is suspected be artifact from the electrode lead. AN outpatient EEG is recommended for follow up. No epileptiform discharges are seen.
[2024-06-14 07:51] VITALS: RESP 18
[2024-06-14] MEDS: MAGNESIUM OXIDE 400 MG TAB PO SCH (10:02)
[2024-06-14 11:49] VITALS: BP 104/64; TEMP 98.8; O2SAT 91
--- NOTE | 2024-06-14 12:58 | Hospitalist Progress Note ---
Date of Service June 14, 2024 Assessment & Plan (1) Seizure: Plan: Breakthrough seizures History of childhood seizure disorder Provoked by hypoglycemia, rule out viral illness Seizure precautions, Ativan as needed active seizures Neurology consult Re: Breakthrough seizures Right hypodensity on CT head ED provider already in [place] [facility] [place] who recommends brain MRI given abnormal CT head and Keppra load followed by increasing daily Keppra from 750 mg twice daily to to 1 g twice daily. Replace electrolytes Minimal headache but no other symptoms and no postictal state MRI is not compatible due to multiple procedures in the past- likely to have CT head with contrast Discussed with the neurologist on-call in [place] She cannot open the record of the patient and give advice to continue current medications and get a CT of the head with and without contrast CT of the head with and without contrast is unremarkable Plan to continue current medications and possible discharge tomorrow Will get an EEG Looks much better today without any significant symptoms Minimal headache without any other associated symptoms Denies any symptoms today EEG is done and awaiting report Likely discharge in a day or 2 on antiseizure medications Will need to have outpatient neurology appointment within 4 to 6 weeks EEG did not show any seizure spike but advised to have outpatient EEG No more seizure activities and will continue the current doses of medication and will need to have a neurology appointment as an outpatient within 3 to 4 weeks Bradyarrhythmias H/OValvular heart disease (mild TR/AR, TTE 2023) 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 Denies any cardiac symptoms of chest pain, palpitation or shortness of breath Noted to have significant bradycardia arrhythmias specially while sleeping and resting in the bed without any symptoms His borderline low magnesium was replaced and no other electrolyte abnormalities and he is not on any beta-jesusita Has significant cardiac surgery due to congenital heart disease Appreciate cardiology input and recommendation No further cardiac workup and he will need to have 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 SCDs re: recent head trauma Full code Text document was generated using [employer] voice recognition software. It may contain grammatical or spelling errors. Kindly contact undersigned for clarification of any documentation item in question. Admission and Anticipated Discharge Date Admission Date: June 08, 2024 Subjective 06/09/2024 The patient was seen and examined in the emergency room He was admitted with breakthrough seizures and now complains of some headache Denies any other significant symptoms 06/10/2024 The patient was seen and examined in medical telemetry unit He has been stable and complains of minimal headache without any associated symptoms No more seizures since admission Denies any other significant symptoms 06/11/2024 The patient was seen and examined in medical telemetry unit He has been feeling much better today and the headache is minimal Did not have any more seizures since admission He is waiting for EEG 06/12/2024 The patient was seen and examined in medical telemetry unit He was noted to have a heart rate of lower 30s specially when he is sleeping Denies any symptoms with it when waking up Heart rate goes up to lower 60s while awake No more seizures since admission 06/13/2024 The patient was seen and examined in medical telemetry unit He has been doing much better and did not have any more seizures His heart rate remained around 60s and did not have any more bradycardia Cardiology team signed off 06/14/2024 The patient was seen and examined in medical telemetry unit He denies any symptoms today and wants to be discharged His heart rate remains stable at around 60s Denies any symptoms Review of Systems Review of Systems: All systems reviewed and are unremarkable except as noted below Physical Exam Physical Exam: Lying in bed without any apparent distress Constitutional: + ill appearing and + thin Eyes: PERRL, conjunctivae normal, anicteric sclerae ENMT: external ear and nose normal, oropharynx normal Neck: trachea midline, no thyromegaly Respiratory: no respiratory distress Auscultation: + diminished lung sounds; no crackles Cardiovascular: Rate/Rhythm: regular rate, regular rhythm and + bradycardic; not tachycardic Heart Sounds: normal S1, normal S2 and + murmur Extremities: no edema Gastrointestinal (Abdomen): Inspection/Auscultation: normal bowel sounds; abdomen not distended Percussion/Palpation: abdomen soft; abdomen nontender Neurologic: normal touch/pain/proprioception and moves all extremities; no focal motor deficits Lymphatic: no cervical or axillary lymphadenopathy Results & Data Results & Data Vital Signs (Past 12 Hours) Vital Signs Temp Pulse Pulse Resp BP Pulse Ox O2 Del Method 06/14/24 11:49 37.1 C 60 18 104/64 91 Room Air 06/14/24 08:46 Room Air 06/14/24 07:50 36.5 C 62 18 111/71 88 L Room Air 06/14/24 07:01 50 L 06/14/24 04:05 89 L Room Air 06/14/24 03:30 36.7 C 50 L 20 91/56 L 87 L Room Air Medications Administered Current Inpatient Medications Acetaminophen (Acetaminophen 325 Mg Tab) 650 mg PO QID PRN PRN Reason: pain/fever Stop: 07/09/24 00:05 Last Admin: 06/11/24 23:21 Dose: 650 mg Aspirin (Aspirin 81 Mg Ectab) 81 mg PO DAILY [facility] Stop: 07/09/24 08:59 Last Admin: 06/14/24 08:39 Dose: 81 mg Levetiracetam (Levetiracetam 500 Mg Tab) 1,000 mg PO BID [facility] Stop: 07/09/24 08:59 Last Admin: 06/14/24 08:39 Dose: 1,000 mg Lisinopril (Lisinopril 10 Mg Tab) 10 mg PO DAILY [facility] Stop: 07/09/24 08:59 Last Admin: 06/14/24 08:39 Dose: 10 mg Lorazepam (Lorazepam 2 Mg/1 Ml Vial) 1 mg IV Q10M PRN PRN Reason: seizures Stop: 07/08/24 23:42 Lorazepam (Lorazepam 0.5 Mg Tab) 0.5 mg PO TID PRN PRN Reason: Anxiety Stop: 07/09/24 00:05 Magnesium Oxide (Magnesium Oxide 400 Mg Tab) 400 mg PO BID [facility] Stop: 07/14/24 09:29 Last Admin: 06/14/24 10:02 Dose: 400 mg Ondansetron HCl (Ondansetron Inj 2 Mg/Ml 2 Ml Vial) 4 mg IV Q4H PRN PRN Reason: Nausea Stop: 07/09/24 00:05
[2024-06-14 13:27] VITALS: PULSE 64
--- NOTE | 2024-06-15 09:18 | Discharge Summary ---
Date of Service June 13, 2024 Admission HPI Per Admitting Provider History obtained from patient and records. 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 Patient has had a seizure disorder since age 10. Has not had a seizure for quite some time. 1 week history of intermittent achy left-sided headache symptoms. Patient did not mention symptoms to medical providers at facility. 2 witnessed seizures at correctional facility lasting 1 to 4 minutes per episode today. No missed medications. Poor appetite yesterday as per patient. Denies abdominal pain. Patient noted to be hypoglycemic BG 50s. Subsequent head trauma from fall. Dextrose water given by EMS. Patient brought to ER for evaluation. 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 Admission Exam Per Admitting Provider Physical Exam: GENERAL: Apathetic, no respiratory distress SKIN: Normal color, warm HEENT: [place] palpebral conjunctivae, no ptosis, dry buccal mucosa NECK : Supple, no tenderness CHEST : CTA, no tenderness HEART : RRR, systolic murmur ABDOMEN: Some distention, nontender EXTREMITIES : No LE swelling/tenderness, no other conspicuous deformities noted NEUROLOGIC : Coherent, no facial asymmetry, no other gross focality Principal Diagnosis Breakthrough seizure, bradycardia arrhythmia with history of valvular heart disease and hypoplastic heart disease status post surgery Discharge Exam Lying in bed without any apparent distress Constitutional + ill appearing and + thin Eyes PERRL, conjunctivae normal, anicteric sclerae ENMT external ear and nose normal, oropharynx normal Neck trachea midline, no thyromegaly Respiratory no respiratory distress Auscultation: + diminished lung sounds; no crackles Cardiovascular Rate/Rhythm: regular rate, regular rhythm and + bradycardic; not tachycardic Heart Sounds: normal S1, normal S2 and + murmur Extremities: no edema Gastrointestinal (Abdomen) Inspection/Auscultation: normal bowel sounds; abdomen not distended Percussion/Palpation: abdomen soft; abdomen nontender Neurologic normal touch/pain/proprioception and moves all extremities; no focal motor deficits Lymphatic no cervical or axillary lymphadenopathy Discharge Data Allergies Allergy/AdvReac Type Severity Reaction Status Date / Time No Known Allergies Allergy Unverified 06/08/24 21:59 Consultations 06/08/24 21:45 ED Decision to Admit Stat 06/12/24 07:24 Consult Cardiology Routine Ordered Studies 06/08/24 16:55 CT cervical spine wo con Stat CT head/brain wo con Stat 06/08/24 17:09 CT lumbar spine wo con Stat CT thoracic spine wo con Stat 06/10/24 13:57 CT head/brain wo/w con Urgent Hospital Course (1) Seizure: Breakthrough seizures History of childhood seizure disorder Provoked by hypoglycemia, rule out viral illness Seizure precautions, Ativan as needed active seizures Neurology consult Re: Breakthrough seizures Right hypodensity on CT head ED provider already in touch with Dr. Short of [facility] neurology who recommends brain MRI given abnormal CT head and Keppra load followed by increasing daily Keppra from 750 mg twice daily to to 1 g twice daily. Replace electrolytes Minimal headache but no other symptoms and no postictal state MRI is not compatible due to multiple procedures in the past- likely to have CT head with contrast Discussed with the neurologist on-call in [place] She cannot open the record of the patient and give advice to continue current medications and get a CT of the head with and without contrast CT of the head with and without contrast is unremarkable Plan to continue current medications and possible discharge tomorrow Will get an EEG Looks much better today without any significant symptoms Minimal headache without any other associated symptoms Denies any symptoms today EEG is done and awaiting report Likely discharge in a day or 2 on antiseizure medications Will need to have outpatient neurology appointment within 4 to 6 weeks EEG did not show any seizure spike but advised to have outpatient EEG No more seizure activities and will continue the current doses of medication and will need to have a neurology appointment as an outpatient within 3 to 4 weeks Bradyarrhythmias H/OValvular heart disease (mild TR/AR, TTE 2023) 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 Denies any cardiac symptoms of chest pain, palpitation or shortness of breath Noted to have significant bradycardia arrhythmias specially while sleeping and resting in the bed without any symptoms His borderline low magnesium was replaced and no other electrolyte abnormalities and he is not on any beta-jesusita Has significant cardiac surgery due to congenital heart disease Appreciate cardiology input and recommendation No further cardiac workup and he will need to have follow-up with his operator electronic warfare as an outpatient as before Rate remains controlled now around 60s and he was strongly advised to keep appointment with his outpatient operator electronic warfare Hypertension, BP on the lower side Blood pressure is maintaining at 145/82 Neutropenia with polycythemia, unknown duration Will observe DVT prophylaxis. SCDs re: recent head trauma Full code Text document was generated using [employer] voice recognition software. It may contain grammatical or spelling errors. Kindly contact undersigned for clarification of any documentation item in questi on. Total Time Total Time Spent Total Time Spent (In Minutes): 35 minutes Discharge Plan Discharge Items [facility] Disposition: [facility] Reason For Visit: HYPOMAG, SZ Discharge Diagnosis: Breakthrough seizure, bradycardia arrhythmia with history of valvular heart disease and hypoplastic heart disease status post surgery Activity: Resume your previous activity Non-emergency contact: Primary Care Provider Call non-emergency contact if: you have any medication questions and your symptoms worsen Follow-up/Referrals: Samy GARCIA [Primary Care Provider] - Diet: Heart Healthy Addtl Attending Provider Instructions: Strongly advised to continue current medications Please keep appointments with the healthcare providers Will need to have a repeat EEG and also neurology appointment in about 3 to 4 weeks Patient should follow up with his primary cardiology team at [facility] as scheduled in September. Outpatient operator electronic warfare, [facility], Bnia Walls MD, of Pediatric / Adult congenital cardiology Pending Studies at Discharge: No Stand-Alone Forms: My [facility] Skilled Items Patient informed of condition?: Yes Discharge Level of Care: Other Communicable Disease: No Discharge Prognosis: Stable Lines: None Urinary Catheter: No Medications and DC Order Prescriptions: New levetiracetam [Keppra] 500 mg Tablet 1,000 mg PO BID Qty: 120 0RF magnesium oxide 400 mg (241.3 mg magnesium) Tablet 400 mg PO BID Qty: 60 0RF Continued acetaminophen 500 mg 500 mg PO MDD 3x PRN (Reason: Pain) aspirin 81 mg 81 mg PO DAILY lisinopril 10 mg 10 mg PO DAILY Discontinued levetiracetam 750 mg 750 mg PO BID Discharge Orders: Discharge Order (Routine); Ordered 06/14/24 Ordered By: George Forrest Admission Data Admit Date/Time: 06/08/24 23:42 Attending Provider: George Forrest Admit Provider: Damion Manning Primary Care Provider: Samy GARCIA Other Providers: Damion Manning Other Interventions: Discharge Summary Assessment (RN) Last Done: 06/14/24 13:25
== END 2024-06-14 13:46 | DRG 101 ==
LOC: ED 16:35 → EDINP 23:42 → 2N 06-09 14:48